=== PATIENT | female | born 1955 | race Caucasian/White ===

== ENCOUNTER → 2022-11-15 | Outpatient (CLI) | payer MEDICARE ==
--- NOTE | 2022-11-16 23:24 | BD ---
EXAMINATION TYPE: Axial Bone Density DATE OF EXAM: 11/15/2022 CLINICAL HISTORY: 67 years old Female. ICD-10 CODE: Z78.0 Height: 59.75 Weight: 159.2 FRAX RISK QUESTIONS: Alcohol (3 or more units per day): no Family History (Parent hip fracture): Mother Glucocorticoids (More than 3mos): no History of Fracture in Adulthood: Foot Secondary Osteoporosis: 1. Type 1 Diabetes: no 2. Hyperthyroidism: no 3. Menopause before 45: yes 4. Malnutrition: no 5. Chronic liver disease: no Rheumatoid Arthritis: no Current Tobacco Use: no RISK FACTORS HISTORY OF: Hip Fracture (Right/Left): no Spine Fracture: no History of Wrist Fracture: no Surgery to Spine/Hip(right/left)/Wrist (right/left): no Family History of Osteoporosis: no Active: somewhat Diet low in dairy products/other sources of calcium: yes Postmenopausal woman: yes Take estrogen and/or progesterone medications: no Lost more than 2 inches in height since high school: no Frequent falls: no Poor Health: no Hyperparathyroidism: no Adrenal Insufficiency: no MEDICATIONS: Prednisone or other steroids: no Thyroid Medications: no Osteoporosis Medications: no Additional Medications: Cholesterol Meds, Calcium, Vit D, CoCu10, Fish Oil, Additional History: EXAM MEASUREMENTS: Bone mineral densitometry was performed using the [employer] System. Bone mineral density as measured about the Lumbar spine is: ----- L1-L4(G/cm2): 1.094 T Score Values are as follows: ----- L1: -1.2 ----- L2: -1.1 ----- L3: -0.4 ----- L4: -0.4 ----- L1-L4: -0.7 Z Score Values are as follows: ----- L1: 0.1 ----- L2: 0.2 ----- L3: 0.9 ----- L4: 1.0 ----- L1-L4: 0.6 Baseline Study Bone mineral density about the R hip (g/cm2): 0.795 Bone mineral density about the L hip (g/cm2): 0.871 T Score values are as follows: -----R Neck: -2.2 -----L Neck: -2.0 -----R Total: -1.7 -----L Total: -1.1 Z Score values are as follows: -----R Neck: -0.9 -----L Neck: -0.7 -----R Total: -0.6 -----L Total: 0.0 Baseline Study FRAX%s: The graph provided illustrates a 32.2% chance for a major osteoporotic fx and a 3.9% chance f or the hips probability for fx in 10 years time. IMPRESSION: Osteopenia (T Score between -2.5 and -1). There is slightly increased risk of fracture and the patient may be considered for treatment. Re-Screen 2-5 years. NOTE: T-SCORE=SD OF THE YOUNG ADULT MEAN.
--- NOTE | 2022-12-07 08:15 | MM ---
Reason for Exam: Screening (asymptomatic). Last mammogram was performed 2 year(s) and 9 month(s) ago. Patient History: Menarche at age 17. First Full-Term at age 23. Postmenopausal. Patient has history of breast feeding. 2019, Bilateral Implants. 1989, Bilateral Implants. Sister had breast cancer, age 55. Risk Values: Samantha 5 year model risk: 2.9%. NCI Lifetime model risk: 10.7%. Prior Study Comparison: 05/14/2018 Bilateral Screening Mammogram, [facility]. 02/18/2020 Bilateral Screening Mammogram, [facility]. Tissue Density: The breast tissue is heterogeneously dense. This may lower the sensitivity of mammography. Findings: Analyzed By CAD. There is no suspicious group of microcalcifications or new suspicious mass. Bilateral breast implants. Overall Assessment: Benign, BI-RAD 2 Management: Screening Mammogram of both breasts in [address] [facility] will attempt to contact patient to return for supplemental views and ultrasound if indicated. Patient should continue monthly self-breast exams. A clinical breast exam by your physician is recommended on an annual basis. This exam should not preclude additional follow-up of suspicious palpable abnormalities. Note on Samantha scores and lifetime risk: 1. A Samantha score greater than 3% is considered moderate risk. If this is the case, consider specialist referral to assess eligibility for a risk reducing agent. 2. If overall lifetime risk for the development of breast cancer is 20% or higher, the patient may qualify for future screening with alternating mammogram and breast MRI. Electronically signed and approved by: Wilfredo Powers DO
== END | disposition home or self-care (01) ==
LOC: RADMAMWWP 16:08
PROVIDERS: ATTEND Internal Medicine
DX: Z12.31 Encounter for screening mammogram for malignant neoplasm of breast (principal); Z13.820 Encounter for screening for osteoporosis; Z78.0 Asymptomatic menopausal state; M85.89 Other specified disorders of bone density and structure, multiple sites
CPT/HCPCS: 77063; 77067; 77080

== ENCOUNTER 2023-04-09 11:11 | Emergency (ER) | payer MEDICARE ==
--- NOTE | 2023-04-09 11:25 | ED ---
Extremity Problem HPI - General Chief complaint: Extremity Problem,Nontraumatic Stated complaint: shoulder and arm pain Time Seen by Provider: 04/09/23 11:24 Source: patient, RN notes reviewed Mode of arrival: ambulatory Limitations: no limitations - History of Present Illness Initial comments: Patient is 68-year-old female presented to the ER with chief complaint of left arm tingling. Patient states going on for about a year and believes it is a pinched nerve. Patient denies any known traumas. Patient states she was recently doing yard work which exacerbated her symptoms. She denies any chest pain, shortness of breath, headache, double/blurry vision, fevers, cough, chills, abdominal pain. - Related Data Previous Rx's Medication Instructions Recorded predniSONE 50 mg PO DAILY 5 Days #5 tab 04/09/23 Allergies Allergy/AdvReac Type Severity Reaction Status Date / Time No Known Allergies Allergy Verified 04/09/23 11:20 Review of Systems ROS Statement: Those systems with pertinent positive or pertinent negative responses have been documented in the HPI. ROS Other: All systems not noted in ROS Statement are negative. Past Medical History Past Medical History: Hyperlipidemia, Hypertension History of Any Multi-Drug Resistant Organisms: None Reported Past Surgical History: Section Past Psychological History: No Psychological Hx Reported Smoking Status: Former smoker Past Alcohol Use History: Rare Past Drug Use History: None Reported General Exam - General Exam Comments Initial Comments: Visual Physical Exam Vital signs reviewed General: Well-appearing, nontoxic, no acute distress. Head: Normocephalic, atraumatic Eyes: PERRLA, EOMI ENT: Airway patent Chest: Nonlabored breathing Skin: No visual rash, normal skin tone Neuro: Alert and oriented 3 Musculoskeletal: No gross abnormalities Limitations: no limitations General appearance: alert, in no apparent distress Head exam: Present: atraumatic, normocephalic, normal inspection Eye exam: Present: normal appearance, PERRL, EOMI. Absent: scleral icterus, conjunctival injection, periorbital swelling ENT exam: Present: normal exam, mucous membranes moist Neck exam: Present: normal inspection. Absent: tenderness, meningismus, lymphadenopathy Respiratory exam: Present: normal lung sounds bilaterally. Absent: respiratory distress, wheezes, rales, rhonchi, stridor Cardiovascular Exam: Present: regular rate, normal rhythm, normal heart sounds. Absent: systolic murmur, diastolic murmur, rubs, gallop, clicks Extremities exam: Present: normal inspection, full ROM, normal capillary refill, other (2+ left radial pulse. bilateral equal strengths. sensation intact. Negative spurlings bilaterally). Absent: tenderness, pedal edema, joint swelling, calf tenderness Neurological exam: Present: alert, oriented X3, CN II-XII intact Psychiatric exam: Present: normal affect, normal mood Skin exam: Present: warm, dry, intact, normal color. Absent: rash Course Vital Signs 04/09/23 11:16 Temperature 98.2 F Pulse Rate 70 Respiratory 18 Rate Blood Pressure 166/88 O2 Sat by Pulse 97 Oximetry Medical Decision Making - Medical Decision Making I performed the quick note portion of the exam. Electronically signed by Buddy Arce PA-C Was pt. sent in by a medical professional or institution ([facility], [employer], urgent care, hospital, or usp...) When possible be specific @ -No Did you speak to anyone other than the patient for history (EMS, parent, family, police, friend...)? What history was obtained from this source @ -No Did you review nursing and triage notes (agree or disagree)? Why? @ -I reviewed and agree with nursing and triage notes Were old charts reviewed (outside hosp., previous admission, EMS record, old EKG, old radiological studies, urgent care reports/EKG's, usp records)? Report findings @ -No old charts were reviewed Differential Diagnosis (chest pain, altered mental status, abdominal pain women, abdominal pain men, vaginal bleeding, weakness, fever, dyspnea, syncope, headache, dizziness, GI bleed, back pain, seizure, CVA, palpatations, mental health, musculoskeletal)? @ -Differential Musculoskeletal: Muscular strain, contusion, ligament sprain, fracture, arthritis, septic arthritis, bursitis, cellulitis, muscle spasm, nerve compression, DVT, arterial occlusion, herpes zoster, electrolyte abnormality, tumor.... This is not meant to be in all inclusive list EKG interpreted by me (3pts min.). @ -None X-rays interpreted by me (1pt min.). @ -Left shoulder x-ray interpreted by me shows no acute process. Cervical spine x-rays interpreted by me shows degenerative disc disease and multilevel foraminal stenosis. No acute fractures or dislocations. CT interpreted by me (1pt min.). @ -None done U/S interpreted by me (1pt. min.). @ -None done What testing was considered but not performed or refused? (CT, X-rays, U/S, labs)? Why? @ -None What meds were considered but not given or refused? Why? @ -None Did you discuss the management of the patient with other professionals (professionals i.e. DrArlyn, PA, [employer], lab, RT, psych nurse, social services analyst, goat driver, teacher, information technology officer, case management manager)? Give summary @ -No Was smoking cessation discussed for >3mins.? @ -No Was critical care preformed (if so, how long)? @ -No Were there social determinants of health that impacted care today? How? (Homelessness, low income, unemployed, alcoholism, drug addiction, transportation, low edu. Level, literacy, decrease access to med. care, senior living, rehab)? @ -No Was there de-escalation of care discussed even if they declined (Discuss DNR or withdrawal of care, Hospice)? DNR status @ -No What co-morbidities impacted this encounter? (DM, HTN, Smoking, COPD, CAD, Cancer, CVA, ARF, Chemo, Hep., AIDS, mental health diagnosis, sleep apnea, morbid obesity)? @ -None Was patient admitted / discharged? Hospital course, mention meds given and route, prescriptions, significant lab abnormalities, going to OR and other pertinent info. @ -Discharge. Patient is a 68-year-old female presented ER with chief complaint of left arm tingling. Vitals stable. Patient has no signs of acute distress. Neurovascularly intact. Equal plaster patternmaker strengths bilaterally. Left shoulder x-ray interpreted by me shows no acute process. Cervical spine x-rays interpreted by me shows degenerative disc disease and multilevel foraminal stenosis. No acute fractures or dislocations. I discussed imaging findings with patient. I advised to follow-up with orthopedics. Referral given. Patient will be prescribed steroids. Return parameters were discussed. Patient be discharged in stable condition with follow-up to orthopedics/PCP. Patient expressed understanding and agreement with care plan. Undiagnosed new problem with uncertain prognosis? @ -No Drug Therapy requiring intensive monitoring for toxicity (Heparin, Nitro, Insulin, Cardizem)? @ -No Were any procedures done? @ -No Diagnosis/symptom? @ -Cervical foraminal stenosis Acute, or Chronic, or Acute on Chronic? @ -Chronic Uncomplicated (without systemic symptoms) or Complicated (systemic symptoms)? @ -Uncomplicated Side effects of treatment? @ -No Exacerbation, Progression, or Severe Exacerbation? @ -No Poses a threat to life or bodily function? How? (Chest pain, USA, CT, pneumonia, PE, COPD, DKA, ARF, appy, cholecystitis, CVA, Diverticulitis, Homicidal, Suicidal, threat to staff... and all critical care pts) @ -No - Radiology Data Radiology results: report reviewed, image reviewed Disposition Clinical Impression: Degenerative disc disease, Foraminal stenosis of cervical region Disposition: HOME SELF-CARE Condition: Stable Instructions (If sedation given, give patient instructions): Degenerative Disc Disease (ED), Chronic Neck Pain (DC) Additional Instructions: Please follow-up with orthopedics. Return to the ER for any new or worsening symptoms. Prescriptions: predniSONE 50 mg PO DAILY 5 Days #5 tab Is patient prescribed a controlled substance at d/c from ED?: No Referrals: Bryon Pittman DO [Primary Care Provider] - 1-2 days Gabriel Alexander DO [Doctor of Osteopathic Medicine] - 1-2 days Time of Disposition: 12:42
[2023-04-09 11:34] VITALS: BP 166/88; PULSE 70; RESP 18; TEMP 98.2
--- NOTE | 2023-04-09 11:51 | XR ---
EXAMINATION TYPE: XR cervical spine comp DATE OF EXAM: 04/09/2023 COMPARISON: None HISTORY: Pain TECHNIQUE: 5 view cervical spine FINDINGS: There is a kyphosis in the upper cervical spine. Anterior vertebral body spurring is presen t C3-C4. There is a grade 1 retrolisthesis of C4 posterior on C5. Posterior spinal lamellar line appe ars intact. There is loss of disc height at C3-4 through C5-6. Some posterior disc space narrowing at C6-7 is present prevertebral space appears normal. Some facet degenerative changes are within the up per cervical spine. Foraminal stenosis on the right is present C3-4 C4-5 C5-6 and to a milder degree C6-7. On the left th ere is moderate foraminal stenosis C3-4 C4-5 and C5-6. IMPRESSION: 1. Bilateral foraminal stenosis. 2. Degenerative disc changes discussed above. 3. Mild grade 1 retrolisthesis of C4 posterior on C5.
--- NOTE | 2023-04-09 11:53 | XR ---
EXAMINATION TYPE: XR shoulder complete LT DATE OF EXAM: 04/09/2023 COMPARISON: NONE HISTORY: Pain TECHNIQUE: Shoulder examined in 3 projections. FINDINGS: The humeral head articulates with the glenoid. The acromio-clavicular junction is normal. No acute fractures or dislocations are evident. A follow up study can be performed 7-10 days from acute trauma for continued pain. MRI can be perfor med if soft tissue evaluation would be of benefit. IMPRESSION: 1. No acute osseous shoulder abnormality left shoulder.
== END 2023-04-09 12:52 | disposition home or self-care (01) ==
LOC: EC 11:11
DX: M48.02 Spinal stenosis, cervical region (principal); I10 Essential (primary) hypertension; Z87.891 Personal history of nicotine dependence
CPT/HCPCS: 72050; 99283

== ENCOUNTER → 2023-05-03 | Outpatient (CLI) | payer MEDICARE ==
--- NOTE | 2023-05-03 21:50 | MR ---
EXAMINATION TYPE: MR cervical spine wo con DATE OF EXAM: 05/03/2023 9:00 PM CLINICAL INDICATION:Female, 68 years old with history of M542, Neck pain into Left shoulder/arm/finge rs, Numbness/tingling since Apr 06, 2023 COMPARISON: 04/21/2023. TECHNIQUE: Multi planar, multi sequence imaging was performed utilizing: T1-weighted, T2-weighted, an d turbo inversion recovery imaging of the cervical spine. IV Contrast: cc (none if empty) FINDINGS: Alignment: The cervical vertebral bodies have preserved heights. Subtle grade 1 anterolisthesis of C6 and C7. Bones: Minimal osteophytes and disc space narrowing most pronounced at the C3-C6 vertebral levels. Cord: The spinal cord is unremarkable with regards to their signal intensity and morphology. Discs: Multilevel disc desiccation is present. C2-C3: No significant disc pathology. The spinal canal is patent. Bilateral facet and uncovertebral joint arthropathy are present with mild bilateral neural foraminal stenosis. C3-C4: No significant disc pathology. The spinal canal is patent. Bilateral facet and uncovertebral joint arthropathy are present with severe moderate to severe bilateral neural foraminal stenosis. C4-C5: A disc osteophyte complex is present with mild to moderate spinal canal stenosis. Bilateral f acet and uncovertebral joint arthropathy are present with severe left and moderate to severe right ne ural foraminal stenosis. C5-C6: A disc osteophyte complex is present with moderate spinal canal stenosis. Bilateral facet and uncovertebral joint arthropathy are present with moderate to severe left and moderate to severe righ t neural foraminal stenosis. C6-C7: No significant disc pathology. The spinal canal is patent. Bilateral facet and uncovertebral joint arthropathy are present with moderate to severe bilateral neural foraminal stenosis. C7-T1: No significant disc pathology. The spinal canal is patent. No neural foraminal stenosis. T2-T3 and T3-T4 disc bulging without significant spinal canal stenosis. There is moderate bilateral T 2-T3 neural foraminal stenosis. T4-T5 left central protrusion partially visualized on sagittal only imaging. Other: None. IMPRESSION: 1. No evidence for disc herniation or significant spinal canal stenosis. 2. Moderate disc degeneration with associated osteoarthritic changes worse at C3-C6 resulting in bladimir re left C5-C6, moderate to severe right C5-C6, and moderate to severe bilateral C6-C7 neural foramina l stenosis. 3. T4-T5 left central disc protrusion which impresses upon the spinal cord. This is only seen on sagi ttal imaging. 4. Disc bulging in the upper thoracic spine also present with moderate bilateral T2-T3 neural foramin al stenosis.
== END | disposition home or self-care (01) ==
LOC: RADMRIMAIN 23:01
PROVIDERS: ATTEND Orthopaedic Surgery
DX: M50.322 Other cervical disc degeneration at C5-C6 level (principal); M47.812 Spondylosis without myelopathy or radiculopathy, cervical region; M99.71 Connective tissue and disc stenosis of intervertebral foramina of cervical region; M51.24 Other intervertebral disc displacement, thoracic region; M48.02 Spinal stenosis, cervical region
CPT/HCPCS: 72141

== ENCOUNTER → 2023-05-24 | Outpatient (CLI) | payer MEDICARE ==
[2023-05-24 13:46] VITALS: BP 147/77; PULSE 77; RESP 16; TEMP 97.1
--- NOTE | 2023-05-24 14:31 | P.PAINPG ---
PQRS Measure Charge Sheet Comment: HISTORY OF PRESENT ILLNESS: A 68 yr old female as a referral from Dr Pittman presents today w severe and chronic neck pain x 1 yr secondary to DDD, spondylosis and facet arthropathy without myelopathy for evaluation. Pt states pain level is provoked at 10 /10 in intensity, constant, localized in the lower cervical spine, predominantly axial, stabbing in character w occasional shooting pain towards the LUE. Pain is provoked by over activity. Pain is alleviated by PT integrated w massage x 4 wks which she is currently in, heat, medications (Lyrica), Voltaren topical, repositioning and rest. Oswestry axial pain score at . PMH: OA, Hyperlipidemia, HTN PSH: Section SH: Former tobacco user, Rare ETOH use, No illicit drug use FH: Noncontributory All: See list Meds: See list REVIEW OF ORGAN SYSTEMS: CONSTITUTIONAL: No fevers or chills. No recent weight loss. NEUROLOGICAL: + numbness and tingling along the distal extremities. No seizure disorders or headaches. MUSCULOSKELETAL: + pain PSYCHIATRIC: Denies current depression or suicidal thoughts. Physical Examinations : Constitutional : Cooperative , not in acute distress . Neurologic : Cranial nerve II to XII intact. No focal neurological deficits. Psychiatric : alert & oriented x 3. Matching mood & appropriate affect. Judgment & insight intact. Musculoskeletal : Cervical Spine Motor strength in the deltoid and biceps: Normal right side. Normal Left side Motor strength biceps and the wrist extensors: Normal right side . Normal left side Motor strength in the triceps muscle: Normal right side. Normal left side Deep tendon reflexes: Normal at the biceps. Normal at Brachioradialis. Normal at triceps Vertebral body tenderness to deep palpation over C6 Cervical facet loading test: positive bilaterally Spurling test: positive bilaterally over C6-7 Neck distraction test: positive bilaterally Sindy sign: positive bilaterally Lumbar spine Motor strength lower extremities ,thigh and legs 5/5 Right side , 5/5 Left side Deep tendon reflexes : Normal Knee Jerk. Normal Ankle Jerk Vertebral body tenderness over Jones Test positive Lumbar facet Loading Test: positive Right / positive Left Range of motion of the lumbar spine Flexion 30 degrees, extension 10 degrees Straight Leg Raise test: Left/ Right positive at degree Laura test: positive right / positive left. Severe tenderness over the Sacroiliac joint on the Right / Left sides Gaenslen test: positive bilaterally Seated flexion test: positive bilaterally. Sacral spine : Severe tenderness over the Sacroiliac joint: right side / left side Range of motion: Flexion of the lumbar spine <60 degrees Range of motion: Extension of the lumbar spine <20 degrees Gaenslen's Test positive Laura test: positive right side / left side Thigh Thrust Test Sacral Thrust Test Imaging: MRI noncontrast of the cervical spine from 05/03/2023 reviewed Assessment/ Plan : Cervical DDD Recommendation of PAMELA C6-C7 #1. May need a series of injections for optimal pain relief. Risks, benefits of procedure discussed and patient verbalized understanding. Admits to anti- coagulant use or medical history of diabetes. Protocol for discontinuation/ continuation of medications juaquin procedure discussed. All questions answered. I have spent greater than 30 minutes on patient care today. Dr Juarez was available by phone for the evaluation of this patient. The time was used to review the medical records including relevant urine studies and Prescription history (MAPs), review of the available imaging, evaluation and examination of the patient, coordination of care with the medical staff and if applicable referring physicians, as well as creation of the medical record Home Medications: Ambulatory Orders predniSONE 50 mg PO DAILY 5 Days #5 tab 04/09/23 Atorvastatin [Lipitor] 40 mg PO DAILY 05/24/23 Cyclobenzaprine [Flexeril] 10 mg PO TID 05/24/23 Diclofenac Sodium 50 mg PO 05/24/23 Ketorolac [Toradol] 10 mg PO Q6HR 05/24/23 amLODIPine [Norvasc] 2.5 mg PO DAILY 05/24/23 Controlled Substance Measures - Controlled Substance Measures Is patient prescribed a controlled substance at discharge?: No
== END ==
LOC: PNWHC3 13:06
PROVIDERS: ATTEND Specialist
DX: M50.323 Other cervical disc degeneration at C6-C7 level (principal); M19.90 Unspecified osteoarthritis, unspecified site; E78.5 Hyperlipidemia, unspecified; I10 Essential (primary) hypertension; Z87.891 Personal history of nicotine dependence
CPT/HCPCS: 99211

== ENCOUNTER 2023-06-13 12:53 | Day surgery (SDC) | payer MEDICARE ==
[2023-06-13] MEDS: LACTATED RINGERS 1,000 ML IV ONE (13:23)
[2023-06-13 13:42] VITALS: TEMP 97.1
[2023-06-13] MEDS ORDERED: IOPAMIDOL M200 10 ML VIAL ONE (13:55)
[2023-06-13] MEDS ORDERED: DEXAMETHASONE SOD PHOSPHATE 10 MG/ML 1 ML VIAL ONE (13:55)
[2023-06-13] MEDS: IV FLUID CONTINUATION 1,000 ML IV ONE (14:13)
--- NOTE | 2023-06-13 14:14 | P.PCN ---
Date of Procedure: 06/13/23 Procedure(s) Performed: . PROCEDURE 1. Cervical epidural steroid injection under fluoroscopic guidance, C7-T1 2. Cervical epidurogram. PREOPERATIVE DIAGNOSIS: 1- Cervical Degenerative Disc Diseases 2- Cervical radiculopathy., 3-cervical spondylosis with cervical Facet arthropathy without myelopathy POSTOPERATIVE DIAGNOSIS: : 1- Cervical Degenerative Disc Diseases , 2- Cervical radiculopathy. 3-,cervical spondylosis with cervical Facet arthropathy without myelopathy ANESTHESIA: Local anesthesia with 1% lidocaine EBL 0 Fluoroscopy image save and stored PROCEDURE INDICATION: The patient with neck pain and radiculitis unresponsive to conservative treatment consents for procedure. Patient MRI cooperates with her clinical symptoms. She has severe complaints of left-handed weakness and pain. She is improved slightly with Lyrica and physical therapy however she's noticed significant deficits in her left arm and hand reviewed she was referred by her neurosurgeon for epidural steroid injection PROCEDURE DESCRIPTION / TECHNIQUE: The patient was seen and identified in the pr eoperative area. Risks, benefits, complications, including but not limited to infections ,bleeding , allergic reactions to the medications ,and not complete pain releife, and alternatives were discussed with the patient, the patient agreed to proceed with the procedure and signed the consent. Patient was taken to the OR and time out was completed. The patient was placed in the prone position on the procedure table. A pillow was placed under the patients chest to increase the cervical interlaminar space. The cervical area was prepped and draped in the usual sterile fashion. Vital signs were closely monitored during the procedure. Using anterior-posterior fluoroscopy, the C7-T1 interlaminar space was identified and the skin over this site was marked and then infiltrated with 1% lidocaine subcutaneously. Subsequently, a 20-gauge 3-1/2-inch Tuohy epidural needle was inserted and advanced toward the epidural space by means of the "[id number]" with saline technique and guided by AP and lateral fluoroscopy. The correct needle position in the epidural space was verified with the injection of 2 mL of the water soluble contrast dye [id number] and observing an excellent epidurogram with the epidural spread of the dye, after negative aspiration for blood and CSF and in the absence of paresthesias. Again after negative aspiration, mixture containing 10 mg Dexamethasone and 2 ml of preservative-free normal saline injected and a washout of epidurogram was seen. Needle was withdrawn intact, skin was cleansed, and bandages were applied. Complications= none. Disposition= patient was placed in supine position and transferred to the recovery room area in stable condition and there was no evidence of upper or lower extremity motor or sensory deficit after the procedure patient was discharged from recovery room after discharge criteria met and home discharge instructions was given by the staff and patient will follow with the pain clinic in 2-4 weeks
[2023-06-13] MEDS ORDERED: LACTATED RINGERS 1,000 ML IV SCH (14:15)
--- NOTE | 2023-06-13 14:28 | FL ---
EXAMINATION TYPE: FL guided pain mgmt statistic DATE OF EXAM: 06/13/2023 HISTORY: Fluoroscopy time Total dose area product (DAP) in uGy*m?, mGy*cm? (or similar): 0.58650 IMPRESSION: 1. Fluoroscopy time.
[2023-06-13 14:52] VITALS: BP 146/78; PULSE 67; RESP 18
== END 2023-06-13 14:48 | disposition home or self-care (01) ==
LOC: ORPAIN 12:53
PROVIDERS: ATTEND Anesthesiology
DX: M50.123 Cervical disc disorder at C6-C7 level with radiculopathy (principal); M47.22 Other spondylosis with radiculopathy, cervical region; Z79.1 Long term (current) use of non-steroidal anti-inflammatories (NSAID); Z91.030 Bee allergy status
CPT/HCPCS: 62321; J1100; Q9966

== ENCOUNTER → 2023-06-28 | Outpatient (CLI) | payer MEDICARE ==
[2023-06-28 13:53] VITALS: BP 128/66; PULSE 62; RESP 15; TEMP 98.4
--- NOTE | 2023-06-28 14:28 | P.PAINPG ---
Objective - Vital Signs Vital signs: Intake & Output 06/27/23 06/28/23 06/28/23 18:59 06:59 18:59 Weight 72.575 kg PQRS Measure Charge Sheet Comment: HISTORY OF PRESENT ILLNESS: A 68 yr old female presents today w severe and chronic neck pain x 1 yr secondary to DDD, spondylosis and facet arthropathy without myelopathy for evaluation s/p PAMELA C6-C7 #1. Pt states she experienced 90% pain relief x 2 wks s/p procedure. Pt states pain level is provoked at 1 /10 in intensity, constant, localized in the lower cervical spine, predominantly axial, stabbing in character w occasional shooting pain towards the LUE. Pain is provoked by over activity. Pain is alleviated by injections, PT integrated w massage x 6 wks which ended in Apr 2023, physician guided home exercise regimen daily since Apr 2023, heat, medications, topical, repositioning and rest. Cervical disability score at 15. Interventional proceudres include PAMELA C6-C7 x1 Medications include Lyrica, Voltaren gel REVIEW OF ORGAN SYSTEMS: CONSTITUTIONAL: No fevers or chills. No recent weight loss. NEUROLOGICAL: + numbness and tingling along the distal extremities. No seizure disorders or headaches. MUSCULOSKELETAL: + pain PSYCHIATRIC: Denies current depression or suicidal thoughts. Physical Examinations : Constitutional : Cooperative , not in acute distress . Neurologic : Cranial nerve II to XII intact. No focal neurological deficits. Psychiatric : alert & oriented x 3. Matching mood & appropriate affect. Judgment & insight intact. Musculoskeletal : Cervical Spine Motor strength in the deltoid and biceps: Normal right side. Normal Left side Motor strength biceps and the wrist extensors: Normal right side . Normal left side Motor strength in the triceps muscle: Normal right side. Normal left side Deep tendon reflexes: Normal at the biceps. Normal at Brachioradialis. Normal at triceps Vertebral body tenderness to deep palpation Cervical facet loading test: positive bilaterally Spurling test: positive bilaterally over C6-7 Neck distraction test: positive bilaterally Sindy sign: positive bilaterally Lumbar spine Motor strength lower extremities ,thigh and legs 5/5 Right side , 5/5 Left side Deep tendon reflexes : Normal Knee Jerk. Normal Ankle Jerk Vertebral body tenderness over Jones Test positive Lumbar facet Loading Test: positive Right / positive Left Range of motion of the lumbar spine Flexion 30 degrees, extension 10 degrees Straight Leg Raise test: Left/ Right positive at degree Laura test: positive right / positive left. Severe tenderness over the Sacroiliac joint on the Right / Left sides Gaenslen test: positive bilaterally Seated flexion test: positive bilaterally. Sacral spine : Severe tenderness over the Sacroiliac joint: right side / left side Range of motion: Flexion of the lumbar spine <60 degrees Range of motion: Extension of the lumbar spine <20 degrees Gaenslen's Test positive Laura test: positive right side / left side Thigh Thrust Test Sacral Thrust Test Imaging: MRI noncontrast of the cervical spine from 05/03/2023 reviewed Assessment/ Plan : Cervical DDD Recommendation of TENS unit M50.30. Will try cervical traction at home w use of cervical traction device. Continues to follow physician guided home exercise plan. May RTC on an as needed basis. All questions answered. I have spent greater than 30 minutes on patient care today. Dr Juarez was available by phone for the evaluation of this patient. The time was used to review the medical records including relevant urine studies and Prescription history (MAPs), review of the available imaging, evaluation and examination of the patient, coordination of care with the medical staff and if applicable referring physicians, as well as creation of the medical record PQRS Narrative: Hx Alcohol Use (MH) No Home Medications: Ambulatory Orders Atorvastatin [Lipitor] 40 mg PO HS 05/24/23 amLODIPine [Norvasc] 2.5 mg PO HS 05/24/23 Cyanocobalamin (Vitamin B-12) [Vitamin B-12] 1,000 mcg PO DAILY 06/08/23 Diclofenac Sodium 50 mg PO TID 06/08/23 Magnesium 250 mg PO DAILY 06/08/23 Multivitamins, Thera [Multivitamin (formulary)] 1 tab PO DAILY 06/08/23 Pregabalin 200 mg PO BID 06/08/23 S-Adenosylmethionine Sul Tosyl [Abner-E] 400 mg PO QAM 06/08/23 Turmeric Root Extract [Turmeric] 500 mg PO DAILY 06/08/23 Ubidecarenone [Co Q-10] 100 mg PO DAILY 06/08/23 Controlled Substance Measures - Controlled Substance Measures Is patient prescribed a controlled substance at discharge?: No
== END ==
LOC: PNWHC3 13:06
PROVIDERS: ATTEND Specialist
DX: M50.323 Other cervical disc degeneration at C6-C7 level (principal); M47.812 Spondylosis without myelopathy or radiculopathy, cervical region; G89.29 Other chronic pain; Z91.030 Bee allergy status
CPT/HCPCS: 99211

== ENCOUNTER → 2023-08-30 | Outpatient (CLI) | payer MEDICARE ==
[2023-08-30 14:22] VITALS: BP 124/72; PULSE 68; RESP 16
--- NOTE | 2023-08-30 15:21 | P.PAINPG ---
PQRS Measure Charge Sheet Comment: HISTORY OF PRESENT ILLNESS: A 68 yr old female presents today w severe and chronic neck pain x 1 yr secondary to DDD, spondylosis and facet arthropathy without myelopathy for evaluation. Pt states pain level is provoked at 7 /10 in intensity, constant, localized in the lower cervical spine, predominantly axial, stabbing in character w occasional shooting pain L & R of midline. Pain is provoked by over activity. Pain is alleviated by injections, PT integrated w massage x 6 wks which ended in May 2023, physician guided home exercise regimen daily since Apr 2023, use of a TENS unit at home, cervical traction at home, heat, medications, topical, repositioning and rest. Cervical disability score at 17. Pt has C3-C5 scheduled 01/29/24. Interventional proceudres include PAMELA C6-C7 x1 Medications include Lyrica, Voltaren gel REVIEW OF ORGAN SYSTEMS: CONSTITUTIONAL: No fevers or chills. No recent weight loss. NEUROLOGICAL: + numbness and tingling along the distal extremities. No seizure disorders or headaches. MUSCULOSKELETAL: + pain PSYCHIATRIC: Denies current depression or suicidal thoughts. Physical Examinations : Constitutional : Cooperative , not in acute distress . Neurologic : Cranial nerve II to XII intact. No focal neurological deficits. Psychiatric : alert & oriented x 3. Matching mood & appropriate affect. Judgment & insight intact. Musculoskeletal : Cervical Spine Motor strength in the deltoid and biceps: Normal right side. Normal Left side Motor strength biceps and the wrist extensors: Normal right side . Normal left side Motor strength in the triceps muscle: Normal right side. Normal left side Deep tendon reflexes: Normal at the biceps. Normal at Brachioradialis. Normal at triceps Vertebral body tenderness to deep palpation Cervical facet loading test: positive bilaterally C4-C5, C5-C6 Spurling test: positive bilaterally Neck distraction test: positive bilaterally Sindy sign: positive bilaterally Lumbar spine Motor strength lower extremities ,thigh and legs 5/5 Right side , 5/5 Left side Deep tendon reflexes : Normal Knee Jerk. Normal Ankle Jerk Vertebral body tenderness over Jones Test positive Lumbar facet Loading Test: positive Right / positive Left Range of motion of the lumbar spine Flexion 30 degrees, extension 10 degrees Straight Leg Raise test: Left/ Right positive at degree Laura test: positive right / positive left. Severe tenderness over the Sacroiliac joint on the Right / Left sides Gaenslen test: positive bilaterally Seated flexion test: positive bilaterally. Sacral spine : Severe tenderness over the Sacroiliac joint: right side / left side Range of motion: Flexion of the lumbar spine <60 degrees Range of motion: Extension of the lumbar spine <20 degrees Gaenslen's Test positive Laura test: positive right side / left side Thigh Thrust Test Sacral Thrust Test Imaging: MRI noncontrast of the cervical spine from 05/03/2023 reviewed Assessment/ Plan : Cervical DDD Recommendation of BL MBB C4-C5, C5-C6 #1. May need a series of injections, up until RFA, for optimal pain relief. Risks, benefits of procedure discussed and patient verbalized understanding. Protocol for discontinuation/continuation of medication surrounding procedure discussed. All questions answered. I have spent greater than 30 minutes on patient care today. Dr Juarez was available by phone for the evaluation of this patient. The time was used to review the medical records including relevant urine studies and Prescription history (MAPs), review of the available imaging, evaluation and examination of the patient, coordination of care with the medical staff and if applicable referring physicians, as well as creation of the medical record - Pain Location Bilateral Lower Neck Non-Pharmacological Interventions: Elevation, Heat, Ice, Inactivity, Physical Therapy, Sitting Pharmacological Interventions: Epidural, PRN Medication, Scheduled Medication, Topical Medication PQRS Narrative: Hx Alcohol Use (MH) No Home Medications: Ambulatory Orders Atorvastatin [Lipitor] 40 mg PO HS 05/24/23 amLODIPine [Norvasc] 2.5 mg PO HS 05/24/23 Cyanocobalamin (Vitamin B-12) [Vitamin B-12] 1,000 mcg PO DAILY 06/08/23 Diclofenac Sodium 50 mg PO TID 06/08/23 Magnesium 250 mg PO DAILY 06/08/23 Multivitamins, Thera [Multivitamin (formulary)] 1 tab PO DAILY 06/08/23 Pregabalin 200 mg PO BID 06/08/23 S-Adenosylmethionine Sul Tosyl [Abner-E] 400 mg PO QAM 06/08/23 Turmeric Root Extract [Turmeric] 500 mg PO DAILY 06/08/23 Ubidecarenone [Co Q-10] 100 mg PO DAILY 06/08/23 Controlled Substance Measures - Controlled Substance Measures Is patient prescribed a controlled substance at discharge?: No
== END ==
LOC: PNWHC3 13:46
PROVIDERS: ATTEND Specialist
DX: M50.321 Other cervical disc degeneration at C4-C5 level (principal); M50.322 Other cervical disc degeneration at C5-C6 level; Z91.030 Bee allergy status
CPT/HCPCS: 99211

== ENCOUNTER 2023-09-15 06:58 | Day surgery (SDC) | payer MEDICARE ==
[2023-09-13 16:03] VITALS: BMI 34.5
[2023-09-15] MEDS: IV FLUID CONTINUATION 1,000 ML IV ONE ×2 (06:40→08:29)
[2023-09-15] MEDS: LACTATED RINGERS 1,000 ML BAG IV STA (06:43)
[2023-09-15 07:14] VITALS: TEMP 97.3
[2023-09-15] MEDS ORDERED: ROPIVACAINE 5MG/ML 20ML VIAL ONE (08:02)
[2023-09-15] MEDS ORDERED: fentaNYL (PF) 50 MCG/ML 2 ML AMP ONE (08:02)
[2023-09-15] MEDS ORDERED: MIDAZOLAM 2 MG/2 ML VIAL ONE (08:02)
--- NOTE | 2023-09-15 08:25 | P.PCN ---
Date of Procedure: 09/15/23 Procedure(s) Performed: PREOPERATIVE DIAGNOSIS: 1-Cervical Spondylosis with Facet Arthropathy.without myelopathy. 2-cervical degenerative disc disease POSTOPERATIVE DIAGNOSIS:1-cervical spondylosis with facet arthropathy without myelopathy. 2-cervical degenerative disc disease PROCEDURES: Diagnostic bilateral C4 , C5 , and C6 medial branch blocks, with fluoroscopic guidance (fluoroscopy images available in radiology department ) ( to target the facet joint at bilateral C4- 5 ,C5- 6 )#1 St ANESTHESIA: moderate sedation with Versed 2 mg , and fentanyl 50 micrograms ( sedation started at 08:02 ended 08:22 ) EBL: Minimal PROCEDURE INDICATION: The patient with neck pain secondary to cervical arthropathy unresponsive to more conservative treatments. PROCEDURE DESCRIPTION / TECHNIQUE: The patient was seen and identified in the preoperative area. Risks, benefits, complications, and alternatives were discussed with the patient, the patient agreed to proceed with the procedure and signed the consent. IV was started. Vital signs remained stable throughout the procedure. Patient was taken to the OR and time out was completed. The patient was placed in the lateral position on the procedure table. The cervical area was prepped and draped in the usual sterile fashion. Critical pause was taken. Vital signs were closely monitored during the procedure. Conscious sedation was used during the procedure to decrease patients anxiety. Using cross-table lateral fluoroscopy, the centroid of the trapezoid of right C4 , C5 and C6, was identified, marked, and localized with 1% lidocaine 1 ml at each level for skin and Sub Q infiltrations . Subsequently, a 22 G 4 spinal needle was advanced guided by fluoroscopy to the centroid of the trapezoid of Right C4 , C5, C6 . [place] tip position was confirmed at the centroid of the trapezoids of Right C4 , C5 ,C6 with anteroposterior fluoroscopy. Subsequently, 2 ml of preservative-free Ropivacaine 0.5% mixed and half ml of the was injected after negative aspiration for blood and CSF. [place] was then r emoved intact the same procedure was repeated at the left C4 , C5 , and C6 levels. COMPLICATIONS: No acute complications. COMMENTS:(We tried to do the procedure and in prone position I was not able to visualize C6 vertebral, this reason the procedure done in lateral position) DISPOSITION / PLANS: The patient was placed in a supine position and transferred to the recovery area in a stable condition for observation and was discharged from the recovery room after meeting discharge criteria. Home discharge instructions given to the patient by the staff. The patient was reexamined prior to discharge. The patient will schedule a follow up in the clinic in 2-4 weeks.
[2023-09-15] MEDS ORDERED: LACTATED RINGERS 1,000 ML IV SCH (08:37)
[2023-09-15 09:01] VITALS: BP 127/81; PULSE 61; RESP 17
--- NOTE | 2023-09-15 11:39 | FL ---
EXAMINATION TYPE: FL guided pain mgmt statistic Intraoperative/procedural fluoroscopic services were provided. Total fluoroscopy time is 14.7 seconds with a total of 4 submitted images to PACS. Please s ee the operative/procedural note for further details. DAP: 0.11227 mGym2 Gycm2 uGym2 cGycm2
== END 2023-09-15 09:04 | disposition home or self-care (01) ==
LOC: ORPAIN 06:58
PROVIDERS: ATTEND Specialist
DX: M47.812 Spondylosis without myelopathy or radiculopathy, cervical region (principal); M50.322 Other cervical disc degeneration at C5-C6 level
CPT/HCPCS: 64490; 64491 ×2; 99152; J2250; J3010; J2795

== ENCOUNTER → 2023-10-05 | Outpatient (CLI) | payer MEDICARE ==
[2023-10-05 15:17] VITALS: BP 170/73; PULSE 56; RESP 16
--- NOTE | 2023-10-05 15:35 | P.PAINPG ---
Objective - Vital Signs Vital signs: Vital Signs Temp Pulse 56 L 10/05/23 15:14 Resp 16 10/05/23 15:14 BP 170/73 10/05/23 15:14 Pulse Ox 98 10/05/23 15:14 FiO2 PQRS Measure Charge Sheet Mode of Arrival: Ambulatory Comment: HISTORY OF PRESENT ILLNESS: A 68 yr old female presents today w severe and chronic neck pain x 1 yr secondary to DDD, spondylosis and facet arthropathy without myelopathy for evaluation s/p BL MBB C4-C5/ C5-C6 #1. Pt states she experienced 95% pain relief x 6 hrs s/p procedure. Pt states pain level is provoked at 7 /10 in intensity, constant, localized in the lower cervical spine, predominantly axial, stabbing in character w occasional shooting pain L & R of midline. Pain is provoked by over activity. Pain is alleviated by injections, PT integrated w massage x 6 wks which ended in May 2023, physician guided home exercise regimen daily since Apr 2023, use of a TENS unit at home, cervical traction at home, heat, medications, topical, repositioning and rest. Cervical disability score at 17. Pt has C3-C5 scheduled 01/29/24. Interventional proceudres include PAMELA C6-C7 x1, BL MBB C4-C5/ C5-C6 x1 Medications include Lyrica, Voltaren gel REVIEW OF ORGAN SYSTEMS: CONSTITUTIONAL: No fevers or chills. No recent weight loss. NEUROLOGICAL: + numbness and tingling along the distal extremities. No seizure disorders or headaches. MUSCULOSKELETAL: + pain PSYCHIATRIC: Denies current depression or suicidal thoughts. Physical Examinations : Constitutional : Cooperative , not in acute distress . Neurologic : Cranial nerve II to XII intact. No focal neurological deficits. Psychiatric : alert & oriented x 3. Matching mood & appropriate affect. Judgment & insight intact. Musculoskeletal : Cervical Spine Motor strength in the deltoid and biceps: Normal right side. Normal Left side Motor strength biceps and the wrist extensors: Normal right side . Normal left side Motor strength in the triceps muscle: Normal right side. Normal left side Deep tendon reflexes: Normal at the biceps. Normal at Brachioradialis. Normal at triceps Vertebral body tenderness to deep palpation Cervical facet loading test: positive bilaterally C4-C5, C5-C6 Spurling test: positive bilaterally Neck distraction test: positive bilaterally Sindy sign: positive bilaterally Lumbar spine Motor strength lower extremities ,thigh and legs 5/5 Right side , 5/5 Left side Deep tendon reflexes : Normal Knee Jerk. Normal Ankle Jerk Vertebral body tenderness over Jones Test positive Lumbar facet Loading Test: positive Right / positive Left Range of motion of the lumbar spine Flexion 30 degrees, extension 10 degrees Straight Leg Raise test: Left/ Right positive at degree Laura test: positive right / positive left. Severe tenderness over the Sacroiliac joint on the Right / Left sides Gaenslen test: positive bilaterally Seated flexion test: positive bilaterally. Sacral spine : Severe tenderness over the Sacroiliac joint: right side / left side Range of motion: Flexion of the lumbar spine <60 degrees Range of motion: Extension of the lumbar spine <20 degrees Gaenslen's Test positive Laura test: positive right side / left side Thigh Thrust Test Sacral Thrust Test Imaging: MRI noncontrast of the cervical spine from 05/03/2023 reviewed Assessment/ Plan : Cervical DDD Recommendation of BL MBB C4-C5, C5-C6 #2. May need a series of injections, up until RFA, for optimal pain relief. Risks, benefits of procedure discussed and patient verbalized understanding. Protocol for discontinuation/continuation of medication surrounding procedure discussed. All questions answered. I have spent greater than 30 minutes on patient care today. Dr Juarez was available by phone for the evaluation of this patient. The time was used to review the medical records including relevant urine studies and Prescription history (MAPs), review of the available imaging, evaluation and examination of the patient, coordination of care with the medical staff and if applicable referring physicians, as well as creation of the medical record - Pain Location Lower Neck Pharmacological Interventions: Medication PQRS Narrative: Blood Pressure 170/73 Pain Intensity [Lower Neck] 6 Scale Used Numeric (1 - 10) Hx Alcohol Use (MH) No Home Medications: Ambulatory Orders Atorvastatin [Lipitor] 40 mg PO HS 05/24/23 amLODIPine [Norvasc] 2.5 mg PO HS 05/24/23 Cyanocobalamin (Vitamin B-12) [Vitamin B-12] 1,000 mcg PO DAILY 06/08/23 Diclofenac Sodium 50 mg PO TID 06/08/23 Magnesium 250 mg PO DAILY 06/08/23 Multivitamins, Thera [Multivitamin (formulary)] 1 tab PO DAILY 06/08/23 Pregabalin 150 mg PO BID 06/08/23 S-Adenosylmethionine Sul Tosyl [Abner-E] 400 mg PO QAM 06/08/23 Turmeric Root Extract [Turmeric] 500 mg PO DAILY 06/08/23 Ubidecarenone [Co Q-10] 100 mg PO DAILY 06/08/23 Controlled Substance Measures - Controlled Substance Measures Is patient prescribed a controlled substance at discharge?: No
== END ==
LOC: PNWHC3 15:05
PROVIDERS: ATTEND Specialist
DX: M50.321 Other cervical disc degeneration at C4-C5 level (principal); M50.322 Other cervical disc degeneration at C5-C6 level; M47.812 Spondylosis without myelopathy or radiculopathy, cervical region; Z91.030 Bee allergy status
CPT/HCPCS: 99211

== ENCOUNTER 2023-10-27 06:42 | Day surgery (SDC) | payer MEDICARE ==
[2023-10-27] MEDS: IV FLUID CONTINUATION 1,000 ML IV ONE ×2 (07:16→08:02)
[2023-10-27] MEDS: LACTATED RINGERS 1,000 ML IV SCH (07:22)
[2023-10-27 07:27] VITALS: TEMP 97.8
[2023-10-27] MEDS ORDERED: MIDAZOLAM 2 MG/2 ML VIAL ONE (07:33)
[2023-10-27] MEDS ORDERED: fentaNYL (PF) 50 MCG/ML 2 ML AMP ONE (07:33)
[2023-10-27] MEDS ORDERED: ROPIVACAINE 5MG/ML 20ML VIAL ONE (07:33)
--- NOTE | 2023-10-27 07:57 | P.PCN ---
Date of Procedure: 10/27/23 Procedure(s) Performed: PREOPERATIVE DIAGNOSIS: 1-Cervical Spondylosis with Facet Arthropathy.without myelopathy. 2-cervical degenerative disc disease POSTOPERATIVE DIAGNOSIS:1-cervical spondylosis with facet arthropathy without myelopathy. 2-cervical degenerative disc disease PROCEDURES: Diagnostic bilateral C4 , C5 , and C6 medial branch blocks, with fluoroscopic guidance (fluoroscopy images available in radiology department ) ( to target the facet joint at bilateral C4- 5 ,C5- 6 )#2nd ANESTHESIA: moderate sedation with Versed 2 mg , and fentanyl 100 micrograms ( sedation started at 07:37 ended 07:54 ) EBL: Minimal PROCEDURE INDICATION: The patient with neck pain secondary to cervical arthropathy unresponsive to more conservative treatments. PROCEDURE DESCRIPTION / TECHNIQUE: The patient was seen and identified in the preoperative area. Risks, benefits, complications, and alternatives were discussed with the patient, the patient agreed to proceed with the procedure and signed the consent. IV was started. Vital signs remained stable throughout the procedure. Patient was taken to the OR and time out was completed. The patient was placed in the lateral position on the procedure table. The cervical area was prepped and draped in the usual sterile fashion. Critical pause was taken. Vital signs were closely monitored during the procedure. Conscious sedation was used during the procedure to decrease patients anxiety. Using cross-table lateral fluoroscopy, the centroid of the trapezoid of right C4 , C5 and C6, was identified, marked, and localized with 1% lidocaine 1 ml at each level for skin and Sub Q infiltrations . Subsequently, a 22 G 3 spinal needle was advanced guided by fluoroscopy to the centroid of the trapezoid of Right C4 , C5, C6 . [place] tip position was confirmed at the centroid of the trapezoids of Right C4 , C5 ,C6 with anteroposterior fluoroscopy. Subsequently, 2 ml of preservative-free Ropivacaine 0.5% mixed and half ml of the was injected after negative aspiration for blood and CSF. [place] was then r emoved intact the same procedure was repeated at the left C4 , C5 , and C6 levels. COMPLICATIONS: No acute complications. COMMENTS:(We tried to do the procedure and in prone position I was not able to visualize C6 vertebral, this reason the procedure done in lateral position) DISPOSITION / PLANS: The patient was placed in a supine position and transferred to the recovery area in a stable condition for observation and was discharged from the recovery room after meeting discharge criteria. Home discharge instructions given to the patient by the staff. The patient was reexamined prior to discharge. The patient will schedule a follow up in the clinic in 2-4 weeks
[2023-10-27 08:05] VITALS: RESP 16
[2023-10-27 08:25] VITALS: BP 138/73; PULSE 59
--- NOTE | 2023-10-27 08:36 | FL ---
EXAMINATION TYPE: FL guided pain mgmt statistic Intraoperative/procedural fluoroscopic services were provided. Total fluoroscopy time is 9.5 seconds with a total of 4 submitted images to PACS. Please se e the operative/procedural note for further details. DAP: 0.04723 mGym2
== END 2023-10-27 08:39 ==
LOC: ORPAIN 06:42
PROVIDERS: ATTEND Specialist
DX: M47.812 Spondylosis without myelopathy or radiculopathy, cervical region (principal); M50.322 Other cervical disc degeneration at C5-C6 level; Z91.030 Bee allergy status
CPT/HCPCS: 64490; 64491 ×2; 99152; J2250; J3010; J2795

== ENCOUNTER → 2023-11-10 | Outpatient (CLI) | payer MEDICARE ==
--- NOTE | 2023-12-25 15:39 | XR ---
Patient: Rousseau Margaret Ordering Physician: Unknown, Unknown ID: [id number] Phone, Pager: Phone: N/A Pager: N/A : [phone] Age/Gender: 68Y, F Primary Location: N/A Procedure: XR knee 4V bilatera l Study Date: 11/10/2023 11:12:00 AM EXAMINATION TYPE: XR knee 4V bilateral DATE OF EXAM: 11/19/2023 12:53 PM CLINICAL INDICATION: Knee pain COMPARISON: None. TECHNIQUE: XR knee 4V bilateral; examined in Frontal, lateral and oblique projections. FINDINGS: No evidence of any acute osseous pathology, soft tissue swelling, or joint effusion is no jasmine. Tricompartmental osteophyte formation involving the femoral condyles, tibial plateau and patella . Mild joint space narrowing. IMPRESSION: 1. No acute osseous pathology. 2. Mild tricompartmental osteoarthritic changes.
== END | disposition home or self-care (01) ==
LOC: RADXRMAIN 10:36
PROVIDERS: ATTEND Internal Medicine
DX: M17.0 Bilateral primary osteoarthritis of knee (principal)

== ENCOUNTER → 2023-11-13 | Outpatient (CLI) | payer MEDICARE | LOC: PNWHC3 14:15 | PROVIDERS: ATTEND Specialist | DX: M47.812 Spondylosis without myelopathy or radiculopathy, cervical region | CPT/HCPCS: 99211 ==

== ENCOUNTER → 2023-12-05 | Day surgery (SDC) | payer MEDICARE ==
[~2023-12-05] MED LIST: LACTATED RINGERS 1,000 ML IV SCH; MIDAZOLAM 2 MG/2 ML VIAL ONE; ROPIVACAINE 5MG/ML 20ML VIAL ONE; fentaNYL (PF) 50 MCG/ML 2 ML AMP ONE
[2023-12-05 13:02] VITALS: TEMP 97.2
[2023-12-05] MEDS: IV FLUID CONTINUATION 1,000 ML IV ONE ×3 (13:07→15:45)
--- NOTE | 2023-12-05 15:00 | P.PCN ---
Description of Procedure: Procedure done. left C4-5, C5-6 facet joint (C4.5,6 medial branch of dorsal ramus ) radiofrequency ablation under fluoroscopic guidance. Anesthesia. IV sedation with versed 2mg and fentanyl 100 microgram. Continuous pulse ox, EKG, blood pressure and verbal communication was maintained with the patient in OR. Blood loss. None. Indication. Patient has got the diagnoses of cervical spondylolysis, facet joint arthropathy with neck pain. Diagnostic medial branch block relieved significant pain. Discussed with the patient procedure, alternatives, complications including infection, bleeding, nerve damage, paralysis all of which could be permanent. Patient understands and all questions are answered. Procedure note. After getting consent patient in OR in prone position. Back of the neck was prepped with chlorhexidine and draped in sterile fashion. After injecting 5 mL of plain 1% lidocaine subcutaneously, a 20-gauge RFA needle was introduced under tunnel vision of the fluoroscope AP view at the waist of the articular pillar (lateral mass) at C4 vertebral level. In the lateral view of the fluoroscope it was confirmed that the tip of the needle stayed within the dorsal half of the articular pillar (lateral mass). C4-5 facet joint was targeted by blocking C4 and C5 medial branch, C5-6 facet joint was targeted by blocking C5 and C6 medial branch . After subcutaneous injection of lidocaine, 20-gauge RFA needle were introduced under tunnel vision of the fluoroscope AP view at the waist of the articular pillars (lateral mass) at C5 vertebral level. In the lateral view of the fluoroscope it was confirmed that the tip of the needle stayed within the dorsal half of the articular pillar (lateral mass). Af ter subcutaneous injection of lidocaine, 20-gauge RFA needle were introduced under tunnel vision of the fluoroscope AP view at the waist of the articular pillars (lateral mass) at C6 vertebral level. In the lateral view of the fluoroscope it was confirmed that the tip of the needle stayed within the dorsal half of the articular pillar (lateral mass). . After positive sensory and negative motor stimulation,injection of 1 ml of 0.5% Ropivacaine, radiofrequency ablation was done at 80 C's for 90 seconds. Second lesion was done at the same settings after rotating the needls 180 degrees. After the procedure needle was taken out and bandage was applied. Disposition. Patient tolerated the procedure well. No complication. Discharged home in stable condition.
[2023-12-05 15:43] VITALS: BP 133/62; PULSE 61; RESP 16
--- NOTE | 2023-12-28 10:36 | FL ---
EXAMINATION TYPE: FL guided pain mgmt statistic DATE OF EXAM: 12/05/2023 3:02 PM COMPARISON: Pre Operative Images if available both CT/MRI or plain film CLINICAL INDICATION: Female, 68 years old with history of RF CERVICAL; TECHNIQUE: FL guided pain mgmt statistic, multiple fluoroscopic images provided for procedure. Total fluoroscopy time: 30.7 seconds Total submitted images to PACS: 2 DAP: 0.21320 mGym2 Gycm2 uGym2 cGycm2 or equivalent. FINDINGS: Fluoroscopic images during injection for pain management demonstrate multilevel degeneration changes throughout the spine. No evidence for fracture. No acute process identified. IMPRESSION: 1. No evidence for intraoperative complication. 2. Please see the operative/procedural note for further details. [facility], , 12/28/2023 10:33 AM
== END ==
LOC: ORPAIN 12:37
PROVIDERS: ATTEND Pain Medicine Interventional Pain Medicine
DX: M47.812 Spondylosis without myelopathy or radiculopathy, cervical region
CPT/HCPCS: 64633; 64634; 99152; 99153

== ENCOUNTER → 2023-12-26 | Outpatient (CLI) | payer MEDICARE ==
--- NOTE | 2023-12-27 10:24 | MM ---
Reason for Exam: Screening (asymptomatic). Last mammogram was performed 1 year(s) and 2 month(s) ago. Patient History: Menarche at age 17. First Full-Term at age 23. Postmenopausal. Patient has history of breast feeding. 2019, Bilateral Implants. 1989, Bilateral Implants. Sister had breast cancer, age 55. Risk Values: Samantha 5 year model risk: 2.9%. NCI Lifetime model risk: 10.3%. Prior Study Comparison: 05/14/2018 Bilateral Screening Mammogram, [facility]. 02/18/2020 Bilateral Screening Mammogram, [facility]. 11/15/2022 Bilateral MG 3D screen mammo imp/cad., [facility]. Tissue Density: There are scattered areas of fibroglandular density. Findings: Analyzed By CAD. Bilateral breast implants appear intact. Right breast: There is no suspicious group of microcalcifications or new suspicious mass. Left breast: There is no suspicious group of microcalcifications or new suspicious mass. Overall Assessment: Benign, BI-RAD 2 Management: Screening Mammogram of both breasts in [address] [facility] will attempt to contact patient to return for supplemental views and ultrasound if indicated. Patient should continue monthly self-breast exams. A clinical breast exam by your physician is recommended on an annual basis. This exam should not preclude additional follow-up of suspicious palpable abnormalities. Note on Samantha scores and lifetime risk: 1. A Samantha score greater than 3% is considered moderate risk. If this is the case, consider specialist referral to assess eligibility for a risk reducing agent. 2. If overall lifetime risk for the development of breast cancer is 20% or higher, the patient may qualify for future screening with alternating mammogram and breast MRI. [facility], , 12/27/2023 10:21 AM. Electronically signed and approved by: Wilfredo Powers DO
== END | disposition home or self-care (01) ==
LOC: RADMAMWWP 15:16
PROVIDERS: ATTEND Internal Medicine
CPT/HCPCS: 77063; 77067

== ENCOUNTER 2023-12-28 08:53 | Day surgery (SDC) | payer MEDICARE ==
[2023-12-28 09:19] VITALS: RESP 14; TEMP 97.6
[2023-12-28] MEDS: LACTATED RINGERS 1,000 ML IV SCH (09:28)
[2023-12-28] MEDS: IV FLUID CONTINUATION 1,000 ML IV ONE ×2 (09:29→10:07)
[2023-12-28] MEDS ORDERED: DEXAMETHASONE SOD PHOSPHATE 10 MG/ML 1 ML VIAL ONE (09:41)
[2023-12-28] MEDS ORDERED: fentaNYL (PF) 50 MCG/ML 2 ML AMP ONE (09:41)
[2023-12-28] MEDS ORDERED: ROPIVACAINE 5MG/ML 20ML VIAL ONE (09:41)
[2023-12-28] MEDS ORDERED: MIDAZOLAM 2 MG/2 ML VIAL ONE (09:41)
--- NOTE | 2023-12-28 10:02 | P.PCN ---
Date of Procedure: 12/28/23 Description of Procedure: Pre- and Post-operative Diagnosis: Cervical Facet Arthropathy/ cervical spondylosis without myelopathy Procedure: Radio Frequency Ablation (RFA) of right cervical C4-C5, and C5-C6 level medial branch (total 2 levels) Surgeon: Amarjit Ross Anesthesia: Local: 1% Lidocaine, IV sedation : Versed 2 mg, and fentanyl 50 mcg +50 mcg Patient supervision timings: Complications: none Estimated blood loss: None Specimen removed: None Fluoroscopic image: Saved to patient electronic medical records. Indications for Procedure: The patient has been suffering from chronic neck pain, migraine headaches. The patient had significant pain relief after diagnostic medial branch block in the same levels, for two times. Came here for radiofrequency ablation for longer pain relief for longer pain relief. Procedure and Findings: The patient was seen and examined. The written informed consent was obtained after explaining all risks, benefits and alternatives of the procedure to the patient. The patient was brought to the procedure room and was placed in the prone position on the operating table. A pillow was placed under the upper chest. Standard anesthesia monitoring was done through out the procedure. Timeout was completed. The skin preparation was done with ChloraPrep, and draping was done in usual sterile fashion. Sterile technique was observed throughout the procedure. Under biplanar fluoroscopic guidance, right side cervical-4, 5 and 6 levels articular pillars were identified. 4 ml of 1% Lidocaine was injected with a 25 gauge needle to achieve adequate local anesthesia of the skin and subcutaneous tissue. A 18 inch RF needle with 10 mm active tip was placed and advanced targeting the center of the waist of the articular pillars keeping the fluoroscope in the AP view. A bony contact was obtained and then fluoroscope was changed to lateral view. Under direct fluoroscopic view, the needle was advanced close to the center of the "trapezoid area" formed by the articular pillars. The nerve stimulation was checked for all levels; it elicited only paraspinal muscle contraction, and was negative for any root stimulation. At each level, 1 ml of 0.5% ropivacaine preservative-free solution mixed with 10 mg of dexamethasone was injected , which contain and RFA was done at 80 degrees Celsius for 90 seconds. At the end of the procedure needle tips retracted more than centimeter and then injected 0.5 mL of 0.5% preservative-free ropivacaine for skin and subcutaneous tissue infiltration. The needles were removed intact, area was cleaned and bandages were applied. Disposition : The patient tolerated the procedure very well. The patient was transferred to the recovery room and remained stable until discharged home. The patient was given detailed discharge instructions for infection, bleeding, and increased pain at the injection site, and was advised to seek immediate medical attention should significant side effects develop. The patient scheduled with our Pain Clinic within 4 -8 weeks for follow-up visit.
[2023-12-28 10:38] VITALS: BP 122/57; PULSE 56
--- NOTE | 2023-12-28 10:40 | FL ---
EXAMINATION TYPE: FL guided pain mgmt statistic DATE OF EXAM: 12/28/2023 10:03 AM COMPARISON: Pre Operative Images if available both CT/MRI or plain film CLINICAL INDICATION: Female, 68 years old with history of Cerv Rad Freq; TECHNIQUE: FL guided pain mgmt statistic, multiple fluoroscopic images provided for procedure. Total fluoroscopy time: 20.3 seconds Total submitted images to PACS: 2 DAP: 0.25384 mGym2 Gycm2 uGym2 cGycm2 or equivalent. FINDINGS: Fluoroscopic images during injection for pain management demonstrate multilevel degeneration changes throughout the spine. No evidence for fracture. No acute process identified. IMPRESSION: 1. No evidence for intraoperative complication. 2. Please see the operative/procedural note for further details. [facility], , 12/28/2023 10:38 AM
== END 2023-12-28 10:50 | disposition home or self-care (01) ==
LOC: ORPAIN 08:53
DX: M47.812 Spondylosis without myelopathy or radiculopathy, cervical region
CPT/HCPCS: 64633; 64634; 99152

== ENCOUNTER → 2024-01-15 | Outpatient (CLI) | payer MEDICARE ==
[2024-01-15 14:17] VITALS: BP 137/79; PULSE 55; RESP 17; TEMP 98
--- NOTE | 2024-01-15 15:03 | P.PAINPG ---
PQRS Measure Charge Sheet Comment: HISTORY OF PRESENT ILLNESS: A 68 yr old female presents today w severe and chronic neck pain x 1 yr secondary to radiculopathy, spondylosis and facet arthropathy without myelopathy for evaluation s/p BL RFA C4-C5/ C5-C6. Pt states she experienced 50 % pain relief s/p procedure. Pt states pain level is provoked at 6 /10 in intensity, constant, localized in the lower cervical spine, predominantly axial, stabbing in character w occasional shooting pain L & R of midline. Pain is provoked by over activity. Pain is alleviated by injections, PT integrated w massage x 6 wks which ended in May 2023, physician guided home exercise regimen daily since Apr 2023, use of a TENS unit at home, cervical traction at home, heat, medications, topical, repositioning and rest. Pt has C3-C5 scheduled 01/29/24. Interventional proceudres include PAMELA C6-C7 x1, BL RFA C4-C5/ C5-C6 (Nov/Dec 2023) Medications include Lyrica, Voltaren gel REVIEW OF ORGAN SYSTEMS: CONSTITUTIONAL: No fevers or chills. No recent weight loss. NEUROLOGICAL: + numbness and tingling along the distal extremities. No seizure disorders or headaches. MUSCULOSKELETAL: + pain PSYCHIATRIC: Denies current depression or suicidal thoughts. Physical Examinations : Constitutional : Cooperative , not in acute distress . Neurologic : Cranial nerve II to XII intact. No focal neurological deficits. Psychiatric : alert & oriented x 3. Matching mood & appropriate affect. Judgment & insight intact. Musculoskeletal : Cervical Spine Motor strength in the deltoid and bic eps: Normal right side. Normal Left side Motor strength biceps and the wrist extensors: Normal right side . Normal left side Motor strength in the triceps muscle: Normal right side. Normal left side Deep tendon reflexes: Normal at the biceps. Normal at Brachioradialis. Normal at triceps Vertebral body tenderness to deep palpation Cervical facet loading test: positive b ilaterally C4-C5, C5-C6 Spurling test: positive bilaterally Neck distraction test: positive bilaterally Sindy sign: positive bilaterally Lumbar spine Motor strength lower extremities ,thigh and legs 5/5 Right side , 5/5 Left side Deep tendon reflexes : Normal Knee Jerk. Normal Ankle Jerk Vertebral body tenderness over Jones Test positive Lumbar facet Loading Test: positive Right / positive Left Range of motion of the lumbar spine Flexion 30 degrees, extension 10 degrees Straight Leg Raise test: Left/ Right positive at degree Laura test: positive right / positive left. Severe tenderness over the Sacroiliac joint on the Right / Left sides Gaenslen test: positive bilaterally Seated flexion test: positive bilaterally. Sacral spine : Severe tenderness over the Sacroiliac joint: right side / left side Range of motion: Flexion of the lumbar spine <60 degrees Range of motion: Extension of the lumbar spine <20 degrees Gaenslen's Test positive Laura test: positive right side / left side Thigh Thrust Test Sacral Thrust Test Imaging: MRI noncontrast of the cervical spine from 05/03/2023 reviewed Assessment/ Plan : Cervical radiculopathy Will undergo C3-C5 ACDF in Jan 2024 and july RTC to our clinic on an as needed basis. All questions answered. I have spent greater than 30 minutes on patient care today. Dr Juarez was available by phone for the evaluation of this patient. The time was used to review the medical records including relevant urine studies and Prescription history (MAPs), review of the available imaging, evaluation and examination of the patient, coordination of care with the medical staff and if applicable referring physicians, as well as creation of the medical record PQRS Narrative: Hx Alcohol Use (MH) No Home Medications: Ambulatory Orders Atorvastatin [Lipitor] 40 mg PO HS 05/24/23 amLODIPine [Norvasc] 2.5 mg PO HS 05/24/23 Cyanocobalamin (Vitamin B-12) [Vitamin B-12] 1,000 mcg PO DAILY 06/08/23 Diclofenac Sodium 50 mg PO TID 06/08/23 Magnesium 250 mg PO DAILY 06/08/23 Multivitamins, Thera [Multivitamin (formulary)] 1 tab PO DAILY 06/08/23 Pregabalin 150 mg PO BID 06/08/23 S-Adenosylmethionine Sul Tosyl [Abner-E] 400 mg PO QAM 06/08/23 Turmeric Root Extract [Turmeric] 500 mg PO DAILY 06/08/23 Ubidecarenone [Co Q-10] 100 mg PO DAILY 06/08/23 Controlled Substance Measures - Controlled Substance Measures Is patient prescribed a controlled substance at discharge?: No
== END ==
LOC: PNWHC3 13:48
PROVIDERS: ATTEND Specialist
DX: M47.812 Spondylosis without myelopathy or radiculopathy, cervical region
CPT/HCPCS: 99211

== ENCOUNTER → 2024-01-24 | Outpatient (CLI) | payer MEDICARE | END | disposition home or self-care (01) | LOC: LABPAT 08:53 | PROVIDERS: ATTEND Orthopaedic Surgery | DX: Z01.818 Encounter for other preprocedural examination (principal); Z22.322 Carrier or suspected carrier of Methicillin resistant Staphylococcus aureus; M50.20 Other cervical disc displacement, unspecified cervical region; M47.22 Other spondylosis with radiculopathy, cervical region | CPT/HCPCS: 36415; 86850; 86900; 86901; 87070 ==

== ENCOUNTER 2024-01-29 05:43 | Day surgery (SDC) | payer MEDICARE ==
[2024-01-24 11:34] VITALS: BMI 35.3
[~2024-01-29 05:43] MED LIST changes: -LACTATED RINGERS 1,000 ML IV SCH; -MIDAZOLAM 2 MG/2 ML VIAL ONE; +ONDANSETRON 4 MG/2 ML VIAL IVP PRN; -ROPIVACAINE 5MG/ML 20ML VIAL ONE; +TRANEXAMIC 1,000 MG/100ML-NACL 1,000 MG in SALINE 1 100ML.BAG IVPB PRN; -fentaNYL (PF) 50 MCG/ML 2 ML AMP ONE
--- NOTE | 2024-01-29 06:17 | P.HPOR ---
History of Present Illness H&P Date: 01/24/24 .D:Date: 01/24/24 : 08:07am .T:Title: H&P; SURGICAL RATIONALE AND RISK DISCUSSION Patient: Argelia Rousseau Planned Procedure: C3-6 Anterior Cervical Discectomy and Fusion Surgery Date: January 29, 2024 Surgical Indication: Ms. Rousseau is a 68-year-old female presenting with progressive cervical myeloradiculopathy. 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 Rousseau regarding the risks, benefits, and alternatives to surgery. Specific risks discussed include but are not limited to: * General Surgical Risks: * Infection Bleeding Blood clots Anesthesia complications Medical complications * Procedure-Specific Risks: * Dysphagia Dysphonia Hoarseness C5 palsy New neurological deficits Hardware failure/malposition Pseudarthrosis Adjacent segment disease Dural tear/CSF leak Need for future surgery Incomplete relief of symptoms Worsening of symptoms * Location-Specific Risks: * Injury to surrounding structures: * Esophagus Trachea Carotid artery Recurrent laryngeal nerve Vertebral artery Spinal cord Nerve roots Patient Understanding: Ms. Rousseau demonstrates good understanding of: * Her condition and its natural history The proposed surgical intervention Potential risks and complications Expected recovery course Alternative treatment options Post-operative restrictions and rehabilitation Pre-operative Planning: * Medical clearance with Dr. Plunkett Pre-operative testing: * Labs EKG CXR CT cervical spine for surgical planning * Review of medications/discontinuation of blood thinners NPO after midnight before surgery Arrange post-operative care/support Follow-up Plan: * 2 weeks post-op for wound check 6 weeks post-op for x-rays and evaluation 3 months post-op for progress check Further follow-up as needed After thorough discussion, Ms. Rousseau wishes to proceed with surgery as planned. She has had all questions answered and demonstrates appropriate understanding of the proposed procedure, its risks, and benefits. Past Medical History Past Medical History: Hyperlipidemia, Hypertension Additional Past Medical History / Comment(s): Cervical stenosis/bulging discs/pinched nerves, numbness and pain arms and left hand numbness. History of Any Multi-Drug Resistant Organisms: None Reported Past Surgical History: Section Additional Past Surgical History / Comment(s): Colonoscopy, Section X2. Past Anesthesia/Blood Transfusion Reactions: No Reported Reaction Additional Past Anesthesia/Blood Transfusion Reaction / Comment(s): Never has had general anesthesia. Smoking Status: Former smoker, Vaper - Past Family History Father Family Medical History: Cancer Additional Family Medical History / Comment(s): of prostate cancer at age 52 yrs. Mother Additional Family Medical History / Comment(s): Fall with hip surgery, 2nd POD, unknown cause. Medications and Allergies Home Medications Medication Instructions Recorded Confirmed Type Atorvastatin [Lipitor] 40 mg PO HS 05/24/23 01/24/24 History amLODIPine [Norvasc] 2.5 mg PO HS 05/24/23 01/24/24 History Cyanocobalamin (Vitamin B-12) 1,000 mcg PO DAILY 06/08/23 01/24/24 History [Vitamin B-12] Diclofenac Sodium 50 mg PO TID 06/08/23 01/24/24 History Magnesium 250 mg PO DAILY 06/08/23 01/24/24 History Multivitamins, Thera [Multivitamin 1 tab PO DAILY 06/08/23 01/24/24 History (formulary)] Pregabalin 150 mg PO BID 06/08/23 01/24/24 History S-Adenosylmethionine Sul Tosyl 400 mg PO QAM 06/08/23 01/24/24 History [Abner-E] Turmeric Root Extract [Turmeric] 500 mg PO DAILY 06/08/23 01/24/24 History Ubidecarenone [Co Q-10] 100 mg PO DAILY 06/08/23 01/24/24 History Allergies Allergy/AdvReac Type Severity Reaction Status Date / Time bee stings, hornet stings Allergy Swelling Uncoded 01/24/24 11:14 Physical Examination Osteopathic Statement: *. No significant issues noted on an osteopathic structural exam other than those noted in the History and Physical/Consult.
[2024-01-29] MEDS: ONDANSETRON 4 MG/2 ML VIAL IVP ONE (06:58)
[2024-01-29] MEDS: DEXAMETHASONE SOD PHOSPHATE 4 MG/ML 1 ML VIAL IV ONE (06:58)
[2024-01-29] MEDS: ACETAMINOPHEN TAB 500 MG TAB PO PRN (06:59)
[2024-01-29] MEDS: LACTATED RINGERS 1,000 ML IV SCH (06:59)
[2024-01-29] MEDS: GABAPENTIN 300 MG CAP PO PRN (07:00)
[2024-01-29] MEDS: IV FLUID CONTINUATION 1,000 ML IV ONE ×2 (07:24)
[2024-01-29] MEDS ORDERED: PHENYLEPHRINE 10 MG/ML VIAL ONE (07:33)
[2024-01-29] MEDS ORDERED: PROPOFOL 10 MG/ML 20 ML VIAL IV ONE (07:33)
[2024-01-29] MEDS ORDERED: ROCURONIUM 10 MG/ML (5 ML VIAL) IV ONE (07:33)
[2024-01-29] MEDS ORDERED: TRANEXAMIC 1,000 MG/100ML-NACL PREMIX BAG ONE (07:33)
[2024-01-29] MEDS ORDERED: MIDAZOLAM 2 MG/2 ML VIAL ONE (07:33)
[2024-01-29] MEDS ORDERED: GLYCOPYRROLATE 0.2 MG/ML 2 ML VIAL ONE (07:33)
[2024-01-29] MEDS ORDERED: NEOSTIGMINE 1 MG/ML 10 ML VIAL ONE (07:33)
[2024-01-29] MEDS ORDERED: fentaNYL (PF) 50 MCG/ML 2 ML AMP ONE (07:33)
[2024-01-29] MEDS ORDERED: SUCCINYLCHOLINE CHLORIDE 200 MG/10 ML VIAL IV ONE (07:33)
[2024-01-29] MEDS: THROMBIN (BOVINE) 5,000 UNIT VIAL TOPICAL ONE (08:13)
[2024-01-29] MEDS ORDERED: HYDROmorphone 2 MG/ML 1 ML SYRINGE IVP PRN (10:15)
--- NOTE | 2024-01-29 10:17 | FL ---
EXAMINATION TYPE: FL guidance operating room DATE OF EXAM: 01/29/2024 HISTORY: Fluoroscopy time Total dose area product (DAP) in uGy*m?, mGy*cm? (or similar): 1.4855 IMPRESSION: 1. Fluoroscopy time. [facility], , 01/29/2024 10:15 AM
[2024-01-29] MEDS: KETOROLAC 15 MG/ML 1 ML VIAL IVP STA (10:33)
[2024-01-29] MEDS: HYDROmorphone 0.5 MG/0.5 ML SYRINGE IVP PRN ×2 (10:34→18:02)
[2024-01-29] MEDS: HYDROcodone/APAP 10-325MG 1 EACH TAB PO PRN (13:58)
--- NOTE | 2024-01-29 18:08 | P.CONS ---
History of Present Illness - Reason for Consult Consult date: 01/29/24 - Chief Complaint Medical management - History of Present Illness 69-year-old woman with a history of hypertension, hyperlipidemia presented for cervical decompression. Medicine was consulted for medical management. Patient has a history of hypertension, hyperlipidemia. She does not surgery went well, pain is decently controlled. She has no other complaints at this time. She is hemodynamically stable labs and images were reviewed. Gen: In NAD, non-toxic HEENT: normocephalic, atraumatic, hearing acuity is intant, mucous membranes moist CVS: perfusing all extremities well, no pitting edema, Respiratory: symmetric chest expansion, no accessory muscle use, GI: soft, NTTP, ND, : no suprapubic tenderness, no CVA tenderness MSK/Derm: no rashes, cyanosis Neuro: CN II-XII intact, no motor weakness, Psych: cooperative, euthymic mood, judgment and insight is intact All Systems reviewed and pertinent positives and negatives noted in HPI, all other symptoms are negative Assessment/plan: Hypertension Hyperlipidemia -Resume home medications -Morning basic metabolic panel, CBC Cervical decompression DVT prophylaxis -Care per primary team Past Medical History Past Medical History: Hyperlipidemia, Hypertension Additional Past Medical History / Comment(s): Cervical stenosis/bulging discs/pinched nerves, numbness and pain arms and left hand numbness. History of Any Multi-Drug Resistant Organisms: None Reported Past Surgical History: Section Additional Past Surgical History / Comment(s): Colonoscopy, Section X2. Past Anesthesia/Blood Transfusion Reactions: No Reported Reaction Additional Past Anesthesia/Blood Transfusion Reaction / Comm: Never has had general anesthesia. Past Psychological History: No Psychological Hx Reported Additional Psychological History / Comment(s): Pt resides with son/j luis-in-law and grandchildren. No device. Smoking Status: Former smoker, Vaper Past Alcohol Use History: Rare Additional Past Alcohol Use History / Comment(s): Quit smoking 7 yrs ago. Vapes - no nicotine in it for last month. Past Drug Use History: None Reported - Past Family History Father Family Medical History: Cancer Additional Family Medical History / Comment(s): of prostate cancer at age 52 yrs. Mother Additional Family Medical History / Comment(s): Fall with hip surgery, 2nd POD, unknown cause. Medications and Allergies Home Medications Medication Instructions Recorded Confirmed Type Atorvastatin [Lipitor] 40 mg PO HS 05/24/23 01/29/24 History amLODIPine [Norvasc] 2.5 mg PO HS 05/24/23 01/29/24 History Cyanocobalamin (Vitamin B-12) 1,000 mcg PO DAILY 06/08/23 01/29/24 History [Vitamin B-12] Diclofenac Sodium 50 mg PO TID 06/08/23 01/29/24 History Magnesium 250 mg PO DAILY 06/08/23 01/29/24 History Multivitamins, Thera [Multivitamin 1 tab PO DAILY 06/08/23 01/29/24 History (formulary)] Pregabalin 150 mg PO BID 06/08/23 01/29/24 History S-Adenosylmethionine Sul Tosyl 400 mg PO QAM 06/08/23 01/29/24 History [Abner-E] Turmeric Root Extract [Turmeric] 500 mg PO DAILY 06/08/23 01/29/24 History Ubidecarenone [Co Q-10] 100 mg PO DAILY 06/08/23 01/29/24 History Allergies Allergy/AdvReac Type Severity Reaction Status Date / Time bee stings, hornet stings Allergy Swelling Uncoded 01/29/24 06:30 Physical Exam Osteopathic Statement: *. No significant issues noted on an osteopathic structural exam other than those noted in the History and Physical/Consult. Vitals: Vital Signs Temp Pulse Resp BP Pulse Ox 01/29/24 13:45 68 159/82 98 01/29/24 13:30 78 157/81 94 L 01/29/24 13:15 80 148/76 99 01/29/24 13:00 65 141/68 99 01/29/24 12:45 77 142/97 99 01/29/24 12:35 86 16 01/29/24 12:30 96.9 F L 63 17 146/78 99 01/29/24 12:01 86 16 155/70 97 01/29/24 11:46 64 16 156/70 99 01/29/24 11:31 70 16 149/67 96 01/29/24 11:14 68 16 145/64 96 01/29/24 10:59 68 16 148/58 96 01/29/24 10:44 70 16 159/72 94 L 01/29/24 10:29 70 16 165/75 97 11/04/24 10:16 86 16 168/73 97 01/29/24 07:10 98.0 F 64 16 125/60 95 Intake and Output 01/29/24 01/29/24 01/29/24 06:59 14:59 22:59 Intake Total 1450 Output Total 150 Balance 1300 Intake: IV 1450 Output: Urine 100 Estimated Blood Loss 50 Other: Voiding Method Indwelling Catheter Weight 82.5 kg
--- NOTE | 2024-01-29 18:13 | CT ---
EXAMINATION TYPE: CT cervical spine wo con DATE OF EXAM: 01/29/2024 5:51 PM COMPARISON: None. CLINICAL INDICATION: Female, 69 years old with history of Post-op C3-C6 ACDF; Post-op C3-C6 ACDF. TECHNIQUE: Axial CT images from the skull base to the inferior aspect of T2 we obtained without intra venous contrast. Coronal and sagittal reformatted images were also reviewed. Contrast used: mL of , (if blank None) Oral contrast used: (if blank None) CT DLP: 245.1 mGycm, Automated exposure control for dose reduction was used. FINDINGS: Postsurgical changes to the spine with fixation hardware intact. Subcutaneous lucencies compatible wi th recent surgery present. Drainage catheter terminates in the right lateral neck. No evidence of fra cture. Fixation hardware limits evaluation. No evidence for significant spinal canal or neural forami nal stenosis. IMPRESSION: No immediate postop complication. Fixation hardware intact. [facility], , 01/29/2024 6:11 PM
[2024-01-29] MEDS: ATORVASTATIN 40 MG TAB PO SCH (20:17)
[2024-01-29] MEDS: PREGABALIN 100 MG CAP PO SCH (20:18)
[2024-01-29] MEDS: amLODIPine 2.5 MG TAB PO SCH (20:19)
[2024-01-29] MEDS: CYCLOBENZAPRINE 5 MG TAB PO PRN (22:36)
[2024-01-30 03:03] VITALS: BP 131/73; PULSE 59; RESP 16; TEMP 98.9
[2024-01-30] MEDS: HYDROcodone/APAP 5-325MG 1 EACH TAB PO PRN (05:37)
--- NOTE | 2024-01-30 07:22 | P.OP ---
Date of Procedure: 01/29/24 Preoperative Diagnosis: 1. 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 UE RADICULOPATHY 3. UE WEAKNESS 4. NECK PAIN 5. MYELOPATHY Postoperative Diagnosis: 1. 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 UE RADICULOPATHY 3. UE WEAKNESS 4. NECK PAIN 5. MYELOPATHY Procedure(s) Performed: 1. C3-4 ANTERIOR CERVICAL ARTHRODESIS 2. C4-5 ANTERIOR CERVICAL ARTHRODESIS 3. C5-6 ANTERIOR CERVICAL ARTHRODESIS 4. C3-6 ANTERIOR CERVICAL INSTRUMENTATION 5. C3-4, C4-5, C5-6 INSERTION OF BIOMECHANICAL DEVICE, CAGES x3 USE OF IONM USE OF IO MICROSCOPE Implants: CHEL ANKER C 8MM, 7MM, 7MM 12, 10, 14MM SCREWS MAGNATOS, AUTOGRAFT Anesthesia: GETA Surgeon: Usama Huntley Brush Material Preparer #1: Mendy Augustin (WAS PRESENT AND ASSISTED WITH ALL ASPECTS OF THEC ASE FROM POSITION TO DRESSING PLACEMENT) Estimated Blood Loss (ml): 50 IV fluids (ml): 1,100 Urine output (ml): 0 Pathology: none sent Condition: stable Disposition: PACU Indications for Procedure: Patient: Argelia Rousseau Planned Procedure: C3-6 Anterior Cervical Discectomy and Fusion Surgery Date: January 29, 2024 Surgical Indication: Ms. Rousseau is a 68-year-old female presenting with progressive cervical myeloradiculopathy. She demonstrates clinical findings including: * Progressive upper extremity weakness (3-4/5 in multiple muscle groups) Positive Hart's sign bilaterally Hyperreflexia (3+ reflexes) Decreased hand dexterity and patient safety officer strength Failed conservative management including: * Multiple rounds of physical therapy Multiple epidural and facet injections Medication management Activity modification Imaging Findings Supporting Surgery: * MRI (05/03/23) demonstrates: * Severe spondylotic changes C3-6 Complete disc collapse at C3-4 and C4-5 Myelomalacia at C3-4 and C4-5 Cord signal changes at C5-6 Severe bilateral foraminal stenosis Moderate to severe central stenosis Surgical Goals: * Decompress the spinal cord to prevent further neurological deterioration Address radiculopathy symptoms Restore cervical lordosis Stabilize the involved segments Improve quality of life and function Risks Discussed: I had an extensive discussion with Ms. Rousseau regarding the risks, benefits, and alternatives to surgery. Specific risks discussed include but are not limited to: * General Surgical Risks: * Infection Bleeding Blood clots Anesthesia complications Medical complications * Procedure-Specific Risks: * Dysphagia Dysphonia Hoarseness C5 palsy New neurological deficits Hardware failure/malposition Pseudarthrosis Adjacent segment disease Dural tear/CSF leak Need for future surgery Incomplete relief of symptoms Worsening of symptoms * Location-Specific Risks: * Injury to surrounding structures: * Esophagus Trachea Carotid artery Recurrent laryngeal nerve Vertebral artery Spinal cord Nerve roots Patient Understanding: Ms. Rousseau demonstrates good understanding of: * Her condition and its natural history The proposed surgical intervention Potential risks and complications Expected recovery course Alternative treatment options Post-operative restrictions and rehabilitation Pre-operative Planning: * Medical clearance with Dr. Plunkett Pre-operative testing: * Labs EKG CXR CT cervical spine for surgical planning * Review of medications/discontinuation of blood thinners NPO after midnight before surgery Arrange post-operative care/support Follow-up Plan: * 2 weeks post-op for wound check 6 weeks post-op for x-rays and evaluation 3 months post-op for progress check Further follow-up as needed After thorough discussion, Ms. Rousseau wishes to proceed with surgery as planned. She has had all questions answered and demonstrates appropriate understanding of the proposed procedure, its risks, and benefits. Description of Procedure: C3-6 ACDF The patient was seen and examined in the preoperative area. All preoperative protocols were followed. Informed consent was obtained, risks and benefits of the procedure were discussed at length. Risks including bleeding infection damage to the surrounding tissue and risk of reoperation were discussed with the patient. Risk of anesthesia up to and including was discussed with the patient. These are outlined in the risk review. They were willing to accept these risks and all the risks of surgery. The patient was given a weight-based dose of antibiotics in the form of 2 g Ancef. The patient was seen and evaluated by the anesthesia team who deemed them fit for surgery. The site was marked, the patient was willing to proceed with the procedure. The patient was transferred to the operative suite by the Department of anesthesia. They were then drifted off to sleep by the department anesthesia and GETA was performed. The patient tolerated this well. Man catheter was placed by nursing staff, a-traumatically. Once confirmation of lines and ventilation the patient was transferred to a Supine Nilton table very carefully. All bony prominences including wrists, elbows, axilla, chest, hips, and thighs, and feet were padded very well. Special attention was paid to the genitalia, and these were padded accordingly. SCDs were placed on bilateral lower extremities and were connected. Arms were well padded and placed at their side thumbs up. Once in position, again we confirmed good ventilation capabilities and that lines were running appropriately. The patients Cervical spine was then exposed. 1010s were placed outlining the incision site. Standard alcohol was used to clean the incision site and allowed to dry. C-arm was used to bio-tres the patient and confirm level for incision which was marked with a skin marker. Operative briefing was performed with all teams and everyone in agreement to proceed. The patient was then prepped and draped in a normal sterile fashion. Timeout was then performed, and all parties agreed with the procedure to be performed. Transverse skin incision was then made on the right side of the patient's neck 3 cm and dissection taken down to the platysma which was split transversely. Sub platysma flap was made, and interval identified between SCM and medial structures. Omohyoid was visualized and protected. Blunt dissection taken down to the anterior cervical fascia which was identified. Blunt prob was then placed and lateral image taken which confirmed levels for operation. These levels were then marked with a bovi. Subperiosteal dissection of the longissimus muscles were then done over these levels identifying uncovertebral joints bilaterally. Retractor was then placed deep to these muscles and held in place with a bed arm. Whitmore pins were placed into C3 and C4 and gentle distraction taken out over the levels. Grey rongeur used to remove disc material. Operating microscope brought in for visualization. Complete discectomy performed at this level with curette, rongure and pituitary. High speed nikhil used to remove osteophytes anteriorly and posteriorly until PLL was identified. 6-0 up curette then used to identify the canal and ressect the PLL. 2-0 and 3-0 Kerrison used then to remove PLL and disc herniation and performed b/l foraminotomies. Once good decompression was accomplished, meticulous hemostasis was performed. Sizers were then placed under lateral fluoroscopy until the desired height and lordosis. Cage was then selected, packed with autograft and allograft and placed under lateral imaging. Once in good position it was tested and stable. Motors run before and after cage placement were stable. The wound was irrigated, and autograft placed lateral to the cage anteriorly for fusion. Whitmore pin was then removed from C3 and placed into C5 and bone wax placed in their void. Gentle distraction taken out over C4-5 now. Complete discectomy done at C4-5 as described including decompression, b/l foraminotomies and PLL resection. Burring of endplates was minimal, osteophytes removed as described. Spacers were then sized and placed under lateral imaging. Cage selected, packed with graft and placed under lateral images. Once in position, meticulous hemostasis performed, and motors remained stable before and after cage placement. AP image confirmed good placement of cages. Wound was irrigated. At C5-6, Whitmore pins were placed into C5 and C6 and gentle distraction taken out over the levels. Grey rongeur used to remove disc material. Operating microscope brought in for visualization. Complete discectomy performed at this level with curette, rongure and pituitary. High speed nikhil used to remove osteophytes anteriorly and posteriorly until PLL was identified. 6-0 up curette then used to identify the canal and ressect the PLL. 2-0 and 3-0 Kerrison used then to remove PLL and disc herniation and performed b/l foraminotomies. Once good decompression was accomplished, meticulous hemostasis was performed. Sizers were then placed under lateral fluoroscopy until the desired height and lordosis. Cage was then selected, packed with autograft and allograft and placed under lateral imaging. Once in good position it was tested and stable. Motors run before and after cage placement were stable. The wound was irrigated, and autograft placed lateral to the cage anteriorly for fusion. Anterior instrumentation was then done on each level with 10, 12, 14 mm screws as appropriate. Screws were drilled measured and placed. All locking mechanisms were set, and all screws had good purchase. Final AP and lateral images taken confirmed good placement of hardware and good reduction and protestant of height. The wound was then irrigated copiously with NSS. Surgicel placed deep in the wound. A deep drain placed out a separate incision and sewed into place. Layered closure then performed with 3-0 Vicryl in the platysma and sub-Q tissue. 2-0 Nylon placed in the skin The wound was then cleaned, dried and skin glue placed. Once glue dried telfa, 4x4, and tegaderms were placed for dressing. The patient was then transferred back to their hospital bed a-traumatically. The drain continued to hold suction. They were placed in a soft collar. They were then awakened by the department of anesthesia having tolerated the procedure well without complications.
[2024-01-30 08:34] LABS: Basophils # (A) 0.03 X 10*3/uL (0.00-0.10); Basophils % (A) 0.2 %; Eosinophils # (A) 0.01 X 10*3/uL (0.04-0.35); Eosinophils % (A) 0.1 %; HCT 37.8 % (37.2-46.3); HGB 11.5 g/dL (12.0-15.0); Lymphocytes # (A) 1.74 X 10*3/uL (0.90-5.00); Lymphocytes % (A) 10.7 %; MCH 25.2 pg (27.0-32.0); MCHC 30.4 g/dL (32.0-37.0); MCV 82.9 FL (80.0-97.0); Mean Platelet Volume 10.8 FL (9.5-12.2); Monocytes # (A) 1.15 X 10*3/uL (0.20-1.00); Monocytes % (A) 7.1 %; NRBC Per 100 WBC 0 X 10*3/uL (0.00-0.01); Neutrophils # (A) 13.23 X 10*3/uL (1.80-7.70); Neutrophils % (A) 81.5 %; Platelet Count 380 X 10*3/uL (140-440); RBC 4.56 X 10*6/uL (4.10-5.20); RDW 15.5 % (11.5-14.5); WBC 16.22 X 10*3/uL (4.50-10.00)
--- NOTE | 2024-01-30 08:42 | P.PN ---
Subjective Progress Note Date: 01/30/24 Principal diagnosis: 1. C3-C6 spondylosis with stenosis 2. Bilateral upper extremity radiculopathy with weakness 3. Cervicalgia 4. Cervical myelopathy Patient seen and examined this morning. Patient is resting comfortably in bed. Patient states that she has been up and ambulatory and tolerating activity well. Patient does have complaint of posterior cervical pain that radiates across the shoulders. She does report that her pain is managed on current regimen and utilizing ice packs. Surgical incision to the anterior cervical spine, edges are well-approximated with glue intact. ALIX drain has been discontinued, documented 25 mL output overnight. New dressing has been applied. Hard cervical collar is intact. Patient is looking forward to working with physical therapy and for discharge later today. Objective - Vital Signs Vital signs: Vital Signs Temp 98.9 F 01/30/24 03:02 Pulse 59 L 01/30/24 03:02 Resp 16 01/30/24 03:02 BP 131/73 01/30/24 03:02 Pulse Ox 98 01/30/24 03:02 FiO2 Intake & Output 01/29/24 01/30/24 01/30/24 18:59 06:59 18:59 Intake Total 1450 240 Output Total 1375 1200 Balance 75 -960 Weight 82.5 kg Intake: IV 1450 Intake, IV Titration 240 Amount Lactated Ringers 1,000 ml 240 @ 20 mls/hr IV .Q24H [facility] Rx#:[id number] Output: Drainage 25 Right Neck 25 Urine 1300 1200 Estimated Blood Loss 50 Other: Voiding Method Indwelling Catheter Indwelling Catheter - Exam Physical Examination General: The patient is awake and alert, in no acute distress Skin: Skin is warm and dry with no obvious rashes or lesions. Surgical incision to the anterior cervical spine, edges are well-approximated with glue intact. ALIX drain has been removed, 25 mL output overnight. Neck: The neck is supple, There is mild tenderness around the incision site, limited range of motion due to surgical procedure and hard cervical collar intact. Cardiovascular: There is a regular rate and rhythm. No murmur, rub or gallop is appreciated. Respiratory: Respirations are non-labored, breath sounds are equal. Gastrointestinal: Soft, non-distended, non-tender abdomen. Back: There is no tenderness to palpation in the midline, paralumbar, parathoracic or buttocks region. There is no obvious deformity . Musculoskeletal: ROM limited secondary to pain and stiffness from surgical procedure. Right: Shoulder abduction 4/5, elbow flexors 4/5, wrist dorsiflexors 4/5. finger abductor 4/5, conveyor loader 4/5, hip flexor 5/5, knee flexor 5/5, ankle dorsiflexor 5/5, ankle plantarflexion 5/5 and extensor hallucis 5/5. Left: Shoulder abduction 4/5, elbow flexors 4/5, wrist dorsiflexors 4/5. finger abductor 4/5, conveyor loader 4/5, hip flexor 4-/5, knee flexor 4/5, ankle dorsiflexor 5/5, ankle plantarflexion 5/5 and extensor hallucis 5/5. Neurological: CN 2-12 intact. There are no obvious motor or sensory deficits. Movement and coordination equal and intact. Sensory exam to light touch intact C5-T1 and intact from L2-S1. Reflexes 2/4 in bilateral upper and lower extremities. Negative Hoffmans, babinski, and clonus signs. Psychiatric: Cooperative, appropriate mood & affect, normal judgment. - Labs CBC & Chem 7: 01/30/24 04:06 Assessment and Plan Assessment: Postop day 1: C3-C6 ACDF Plan: -Appreciate direct sales consultant and team management. -Activity: Ambulate QID, OOB all meals, up and about, limit lifting bending twisting to less than 5 lbs. Use walker or cane if needed for stability. -Daily PT/OT, increase ambulation strength and balance. -Hard cervical collar on at all times, may utilize soft cervical collar in bed. -Pain control: Adequate at this time -Meds: reviewed -GI ppx: senna, Miralax -DVT PPX: Aspirin -Hygiene: Maintain dressing clean and dry. -Encourage IS 10x/hr -Dispo: Anticipate discharge home today *I reviewed and discussed this case with my attending Dr. Huntley, whom has reviewed this chart and films and is in agreement with assessment and plan of care as outlined above. I have personally seen and examined the patient, performed the documentation and the assessment and plan as written. Number of minutes spent on the visit: 20m.
--- NOTE | 2024-01-30 08:49 | P.DS ---
Providers Date of admission: 01/29/24 Expected date of discharge: 01/30/24 Attending physician: Usama Huntley DO Consults: 01/29/24 10:18 Consult Physician Routine Consulting Provider: Cleveland Sawyer Consult Reason/Comments: Medical Management Do you want consulting provider notified?: Yes Primary care physician: [facility] Course: hospital Course: The patient was evaluated preoperatively and found to have the diagnosis of Cervical spondylosis with stenosis, cervical myelopathy. They underwent appropriate preoperative care and were willing to undergo the intended procedure. They underwent a successful C3-C6 ACDF were recovered appropriately and sent to the floor. While on the floor they worked with physical therapy, occupational therapy and nursing to enhance their recovery experience. Their pain was well controlled through their stay and they were started on appropriate medications, DVT ppx modalities, activity and dietary needs. Daily labs were monitored closely, and transfusions were only used when necessary. Medicine as well as other consulting services have made their input and have helped with our team approach and multidisciplinary care. PT milestones have been met and passed and they have made the recommendation of Home for this patient and treating providers agree with this care path. The patient will be discharged home with appropriate medications, instructions and follow-up information and in stable condition. Patient Condition at Discharge: Good Plan - Discharge Summary Discharge Rx Participant: Yes New Discharge Prescriptions: New Sennosides/Docusate Sodium [Senna Plus 8.6-50 mg Softgel] 1 each PO DAILY PRN #20 capsule PRN Reason: Constipation cefaDROXiL [Duricef] 500 mg PO Q12HR #10 cap Cyclobenzaprine [Flexeril] 5 mg PO TID PRN #40 tablet PRN Reason: Muscle Spasm Pregabalin [Lyrica] 150 mg PO BID #60 cap HYDROcodone/APAP 10-325MG [Thurmond 10-325] 1 tab PO Q4-6H PRN #40 tab PRN Reason: Pain No Action Atorvastatin [Lipitor] 40 mg PO HS Ubidecarenone [Co Q-10] 100 mg PO DAILY S-Adenosylmethionine Sul Tosyl [Abner-E] 400 mg PO QAM Diclofenac Sodium 50 mg PO TID Pregabalin 150 mg PO BID Multivitamins, Thera [Multivitamin (formulary)] 1 tab PO DAILY amLODIPine [Norvasc] 2.5 mg PO HS Cyanocobalamin (Vitamin B-12) [Vitamin B-12] 1,000 mcg PO DAILY Magnesium 250 mg PO DAILY Turmeric Root Extract [Turmeric] 500 mg PO DAILY Discharge Medication List Atorvastatin [Lipitor] 40 mg PO HS 05/24/23 [History] amLODIPine [Norvasc] 2.5 mg PO HS 05/24/23 [History] Cyanocobalamin (Vitamin B-12) [Vitamin B-12] 1,000 mcg PO DAILY 06/08/23 [History] Diclofenac Sodium 50 mg PO TID 06/08/23 [History] Magnesium 250 mg PO DAILY 06/08/23 [History] Multivitamins, Thera [Multivitamin (formulary)] 1 tab PO DAILY 06/08/23 [Hi story] Pregabalin 150 mg PO BID 06/08/23 [History] S-Adenosylmethionine Sul Tosyl [Abner-E] 400 mg PO QAM 06/08/23 [History] Turmeric Root Extract [Turmeric] 500 mg PO DAILY 06/08/23 [History] Ubidecarenone [Co Q-10] 100 mg PO DAILY 06/08/23 [History] Cyclobenzaprine [Flexeril] 5 mg PO TID PRN #40 tablet 01/30/24 [Rx] HYDROcodone/APAP 10-325MG [Thurmond 10-325] 1 tab PO Q4-6H PRN #40 tab 01/30/24 [Rx] Pregabalin [Lyrica] 150 mg PO BID #60 cap 01/30/24 [Rx] Sennosides/Docusate Sodium [Senna Plus 8.6-50 mg Softgel] 1 each PO DAILY PRN #20 capsule 01/30/24 [Rx] cefaDROXiL [Duricef] 500 mg PO Q12HR #10 cap 01/30/24 [Rx] Follow up Appointment(s)/Referral(s): Bryon Pittman DO [Primary Care Provider] - 1 Week Usama Huntley DO [Doctor of Osteopathic Medicine] - 2 Weeks Activity/Diet/Wound Care/Special Instructions: Spine Discharge and Recovery Instructions Date of Surgery: 01/29/2024 Diagnosis: cervical spondylosis with stenosis, cervical myelopathy Procedure: C3-C6 ACDF Medications: See medication list All medication refills should be obtained through your primary care doctor or your clinic spine surgeon. Please discuss prescription refills at your follow up appointment. Do not call the hospital for medication refills. Activity: Encourage ambulation with assist of walker, Up and about 6-8x daily PT/OT daily work on balance, strength and mobility Up in chair with all meals Shower daily Brace: Use brace when up and about, do not wear in bed or shower Dressing: Leave your dressing in place for a total of 3 days post operatively. Then you may remove your dressing and leave open to air. Keep the area clean and if not able to keep area clean, then cover with sterile gauze and tape. Showering: You may shower 3 days after your procedure allowing soap and water to run over incision. Do not scrub. Do not soak. Blot dry. Follow up: Please confirm a follow up appointment with your surgeon 2 weeks post operatively. Please make an appointment to follow up with your PCP in 1-2 weeks after surgery for evaluation '3 phase, 3-week plan' POST OP WEEKS 1-3 1. Lifting/carrying/pushing/pulling limited to less than 5 pounds. 2. Do not sit for longer than 15 minutes at one time. Get up and walk around. Prolonged sitting is NOT advised. If you lay down, see if you can tolerate laying down on you front (belly side) 3. Walk for periods of 15 minutes = 1 mile but no longer; do it multiple times times each day. 4. Ice your low back after activity. POST OP WEEKS 3-6 1. Lifting limited to less than 20 pounds. 2. Do not sit for longer than 30 minutes at a time. Frequently change positions. Use a sit-to stand workstation or take frequent breaks from sitting if you have returned to work. 3. Walk for 30 minutes each day. If possible, do these three or more times a day POST OP WEEKS 6+ At your 6-week appointment we will give you a physical therapy referral to focus on a core stabilization and strengthening program. You should also work on leg & buttock strengthening, hamstring & quadriceps stretching, and continue a low impact aerobic activity program such as swimming, walking, or riding a stationary bicycle. During the initial 6 weeks after your surgery, you are at the highest risk of re-injuring your spine. You should generally avoid BLT's (bending, lifting and twisting combination motions) and follow the above guidelines to reduce the chance of reinjury. You can anticipate post op appointments in our office at approximately 3 weeks and 6 weeks after your surgery. INCISION CARE: If your incision is not draining you do NOT need to cover it with a dressing. Keep your incision clean, dry and intact. In most cases, we apply skin glue, staci or sutures to the incision at the time of surgery. This will be like a crust or have the appearance of a scab and will fall off in time on its own. The stitches or staci need to be removed at 3 weeks post op appointment. You may begin to shower 3 days after surgery (this allows the glue to jennings well). However, please avoid scrubbing the incision site or peeling off any of the skin glue. This will ensure optimal healing of your incision. Also, during this time avoid soaking the incision area in water - this includes swimming pools, hot tubs or baths. No ointments, lotions or oils on the incision until your surgeon allows. Leave staci, sutures or glue in place. Neurological dysfunction that comes on suddenly can also be a sign of a stroke. Below some common symptoms of a stroke are listed: B - balance difficulty such as sudden onset walking or leaning to one side - NEW E - eye problem such as sudden double vision or trouble seeing on one side - NEW F - Facial weakness or numbness on one side - NEW A - Arm or leg weakness or numbness on one side - NEW S - Slurred speech or difficulty with word finding - NEW T - Time is BRAIN! Call 911 as soon as you recognize these symptoms Diet: Consume a regular diet rich in vegetables and lean protein such as chicken or fish. You should consume in a ratio of approximately 20% fats|40% carbohydrates|40%protein. Vegetables, sweet potatoes, brown rice or quinoa are examples of good carbohydrates. Chips, white bread, cookies and sweets/sugar are examples of bad carbohydrates. Limit your bad carbs, go wild with good carbs. "Life's Simple 7" Guidelines as per [place] [employer] These will help you reclaim your life after surgery and relay tester helper in your recovery, keeping in mind your restrictions. (1) Get Active. Physical activity can help people lose weight, control high blood pressure and cholesterol, feel emotionally better, and sleep better. (2) Control Cholesterol. Avoid a diet high in saturated fat, trans fat, & cholesterol. Limit whole milk & cream, ice cream, butter, egg yolks, processed meats (like sausage and hot dogs), and fatty meats. Choose healthy foods that are low in saturated fat, trans fat and cholesterol which include: Fruits and vegetables, fiber rich grain products (like whole grain pasta and brown rice), lean meat such as chicken, fish, nuts, seeds, and legumes. (3) Eat Better. Eat small portions. Shop at the grocery with a list and do not stray from it. Tips for a healthy diet include: Limit sodium intake to less than 1500mg daily, avoid prepackaged, processed, and fast foods, choose a diet rich in fruits, vegetables, and whole grain, high fiber foods, and limit saturated & cholesterol in your diet. (4) Manage Blood Pressure. If you have high blood pressure, you should have a cuff at home so that you can check your blood pressure regularly. Be sure you have a good cuff. An arm one is generally better than a wrist one. Bring the cuff to a doctor's appointment to validate that the measurements that your cuff are taking are accurate. Take your blood pressure twice daily when you are sitting down and relaxing. Record the numbers in a log and bring this log with you to your doctors' appointments. (5) Lose Weight if your BMI is above 25. A healthy BMI is between 19-25. To calculate Your BMI, you may use a Standard BMI Calculator on the NIH BMI website: <www.nhlbi.nih.gov/guidelines/obesity/BMI/bmicalc.htm>. Weigh oneself daily. If you are overweight, set a goal to lose weight. A pound a week loss if needed is a good target. (6) Reduce Blood Sugar. Limit foods and liquids with "added sugars." (Added sugars include sucrose, fructose, glucose, maltose, dextrose, high fructose corn syrup, corn syrup, concentrated fruit juice and honey). (7) Stop Smoking. If you smoke, quitting smoking is one of the best things that you can do for your health. Smoking increases your risk of heart attack, stroke, and peripheral vascular disease, which is a build-up of plaque in your arteries. Please discard all the cigarettes and lighters in your house. Have a plan for what you will do when you have the urge to smoke. Direct and second- hand smoke shortens your life as well as the lives of your family, friends and others around you. For your health and the health of those around you, please consider quitting! Proper Bending Body Mechanics: Maintain a wide stance with one foot slightly in front of the other. Keep your back straight. Bend utilizing the strength in your hips and knees. Do not bend at the waist. Maintain the lifted object at your waist-level close to your body. Avoid lifting weight that causes immediately pain or pain anywhere in the body afterwards. Smoking/Nicotine If there was ever one thing that you could do to increase your overall health, decrease your risk of cardiovascular problems by about 39% the second you make the choice, it is to STOP SMOKING. Your body's most instant gratification is the second you stop smoking. We have all heard the studies, read the articles but it is true, smoking is extremely bad for your overall health, and moreover it is detrimental to your bone health. Nicotine, IN ANY FORM, kills bone cells, prevents your body from healing fractures, and significantly prolongs healing after surgery. In spine surgery specifically, it increases your risk of not healing your bones to create a fusion and increases your risk of having a revision surgery due to this up to 60%. I know it is hard. I know it feels impossible. But there are ways. Take control of your life. We are here to help you through it. And when you are ready, ask us and we can direct you to help if you desire. Use the START Plan to Quit Smoking (please visit the Helpguide.org website listed below for more information): S = Set a quit date. Choose a date within the next 2 weeks, so you have enough time to prepare without losing your motivation to quit. If you mainly smoke at work, quit on the weekend, so you have a few days to adjust to the change. T = Tell family, friends, and co-workers that you plan to quit. Let your friends and family in on your plan to quit smoking and tell them you need their support and encouragement to stop. Look for a quit beatriz who wants to stop smoking as well. You can help each other get through the rough times. A = Anticipate and plan for the challenges you'll face while quitting. Most people who begin smoking again do so within the first 3 months. You can help yourself make it through by preparing ahead for common challenges, such as nicotine withdrawal and cigarette cravings. R = Remove cigarettes and other tobacco products from your home, car, and work. Throw away all your cigarettes (no emergency pack!), lighters, ashtrays, and matches. Wash your clothes and freshen up anything that smells like smoke. Shampoo your car, clean your drapes and carpet, and steam your furniture. T = Talk to your doctor about getting help to quit. Your doctor can prescribe medication to help with withdrawal and suggest other alternatives. If you can't see a doctor, you can get many products over the counter at your local pharmacy or grocery store, including the nicotine patch, nicotine lozenges, and nicotine gum. Resources for Quitting Smoking: <https://www.[place]. ov/documents/[facility]/Quit_Tobacco_Resources_for_patients_313480_7.pdf> Supplementation: Take recommended dosages of Vitamin D and Calcium to help fortify your bones and help them to heal. See your health maintenance packet for dosages and recommended levels. DVT/VTE prophylaxis: You will be given compression stockings from the hospital. Wear these daily for the first two weeks after surgery. You may take them off at night. You may be prescribed a medication to help thin your blood. Take this as directed. If you are not prescribed this medication, early and frequent ambulation has been shown to be the best prophylaxis to deep vein thrombosis and sequelae related to this event. Discharge Disposition: HOME SELF-CARE
[2024-01-30 09:13] LABS: BUN/Creat Ratio 15.67 Ratio (12.00-20.00); Blood Urea Nitrogen 9.4 mg/dL (9.0-27.0); Calcium 9.2 mg/dL (8.7-10.3); Carbon Dioxide 25.2 mmol/L (21.6-31.8); Chloride 106 mmol/L (96-109); Glucose 119 mg/dL (70-110); Potassium 4.3 mmol/L (3.5-5.5); Sodium 141 mmol/L (135-145)
[2024-01-30] MEDS: MULTIVITAMINS, THERA 1 EACH TAB PO SCH (09:49)
[2024-01-30] MEDS: CYANOCOBALAMIN 500 MCG TAB PO SCH (09:50)
[2024-01-30] MEDS: MAGNESIUM OXIDE 400 MG TAB PO SCH (09:50)
[2024-01-30] MEDS: ASPIRIN 81 MG PO SCH (09:50)
[2024-01-30] MEDS: PREGABALIN 75 MG CAP PO SCH (10:06)
--- NOTE | 2024-01-30 11:38 | P.PN ---
Subjective Progress Note Date: 01/30/24 Hospital course: Patient is a pleasant 69-year-old female with a past medical history of hypertension, hyperlipidemia, and cervical stenosis and bulging disks with upper extremity radiculopathies. She is currently admitted under orthopedic surgery team and is status post C3-C6 cervical arthrodesis and instrumentation with insertion of biomechanical cage. We were consulted for medical management throughout hospitalization. Physical exam: Patient seen and fully evaluated at bedside this morning. Cervical collar in place. She reports that yesterday she felt great today she is feeling moderate postoperative pain. She denies having any difficulty swallowing and is clearing secretions without difficulties. Patient reports she feels ready to go home and is looking forward to recovering and feeling better. She denies having any other complaints or needs at this time. Vital signs reviewed and stable. General: Nontoxic, no distress and appears stated age. Derm: Skin warm and dry, normal coloration for ethnicity. Head: Atraumatic, normocephalic and symmetric. Hard c-collar in place. Dressing in place to anterior neck. Eyes: EOM's intact, no lid lag, and anicteric sclera Mouth: no lip lesions, mucus membranes moist Cardiovascular: regular rate and rhythm with normal S1S2, no murmur, positive posterior tibial pulses bilaterally, and cap refill < 2 seconds. Lungs: Respirations even, regular, and unlabored on room air. Lungs CTA bilaterally, no rhonchi, no rales, no wheezing, and no accessory muscle usage. Abdominal: soft, nontender to palpation, no guarding, no appreciable organomegaly Ext: ROM intact. No gross muscle atrophy, no edema, no contractures Neuro: Speech clear, face symmetrical and CN II-XII grossly intact with no noted focal neuro deficits Psych: Alert and oriented to person, place, time, and situation. Appropriate and pleasant affect. Assessment and Plan of Care: Status post C3-C6 cervical arthrodesis and instrumentation with insertion of biomechanical cage -Management per primary admitting orthospine surgery team including DVT prophylaxis, pain management, wound/dressing/drain management, and PT/OT. -Currently DVT prophylaxis with aspirin 81 mg daily, CASSI hose, and SCDs. Leukocytosis -Preoperative WBC count 9.27 and postoperative WBC count of 16.22. This is reactive secondary to surgical procedure, no signs of infection. No need for further intervention at this time. Hypertension -Monitor vital signs and continue daily medication regimen with amlodipine 2.5 mg nightly. Hyperlipidemia -Continue atorvastatin 40 mg nightly. Radiculopathy secondary to spinal stenosis -Continue Lyrica 150 mg twice daily. Data reviewed: -Vital signs reviewed. Blood pressure 131/73, heart rate 59, respiratory rate 16, temp 98.9 F, and SpO2 of 98% on room air. -Postoperative labs reviewed. CBC showing leukocytosis with WBC count of 16.22 and normocytic anemia with hemoglobin of 11.5. BMP was unremarkable with sodium 141, potassium 4.3, chloride 106, bicarb 25.2, and anion gap of 9.80 with renal function as follows BUN 9.4, creatinine 0.6, and GFR of 98. Blood glucose was 119. Patient is medically optimized and stable from medical perspective for discharge once cleared by primary admitting orthospine surgery team. Thank you for allowing us to participate in the care of this pleasant patient. Do not hesitate to contact us with questions. Someone can be reached from the [facility] hospitalist group all hours of the day at [phone] or via perfect serve. Patient was seen independently by Nurse Pracitioner. This document was prepared using [employer] dictation software. Please allow for errors in machine iii coremaker, while rare they do occur. Carlos Gomez NP rendered care for this patient independently, reviewed the findings and plan as documented in the note above. I did not physically speak with or examine the patient on this date. Objective - Vital Signs Vital signs: Vital Signs Temp 98.9 F 01/30/24 03:02 Pulse 59 L 01/30/24 03:02 Resp 16 01/30/24 03:02 BP 131/73 01/30/24 03:02 Pulse Ox 98 01/30/24 03:02 FiO2 Intake & Output 01/29/24 01/30/24 01/30/24 18:59 06:59 18:59 Intake Total 1450 240 Output Total 1375 1200 Balance 75 -960 Weight 82.5 kg Intake: IV 1450 Intake, IV Titration 240 Amount Lactated Ringers 1,000 ml 240 @ 20 mls/hr IV .Q24H YOHANA Rx#:[id number] Output: Drainage 25 Right Neck 25 Urine 1300 1200 Estimated Blood Loss 50 Other: Voiding Method Indwelling Catheter Indwelling Catheter - Labs CBC & Chem 7: 01/30/24 04:06 01/30/24 04:06 Labs: Abnormal Lab Results - Last 24 Hours (Table) 01/30/24 01/30/24 Range/Units 04:06 04:06 WBC 16.22 H (4.50-10.00) X 10*3/uL Hgb 11.5 L (12.0-15.0) g/dL MCH 25.2 L (27.0-32.0) pg MCHC 30.4 L (32.0-37.0) g/dL RDW 15.5 H (11.5-14.5) % Immature Gran # 0.06 H (0.00-0.04) X 10*3/uL Neutrophils # 13.23 H (1.80-7.70) X 10*3/uL Monocytes # 1.15 H (0.20-1.00) X 10*3/uL Eosinophils # 0.01 L (0.04-0.35) X 10*3/uL Glucose 119 H (70-110) mg/dL
== END 2024-01-30 10:51 | disposition home or self-care (01) ==
LOC: OR 05:43 → 4SSUR 10:16 → OR 01-30 10:51
PROVIDERS: ATTEND Orthopaedic Surgery
DX: M47.22 Other spondylosis with radiculopathy, cervical region (principal); M48.02 Spinal stenosis, cervical region; M47.12 Other spondylosis with myelopathy, cervical region; G96.00 Cerebrospinal fluid leak, unspecified; R13.10 Dysphagia, unspecified; E78.5 Hyperlipidemia, unspecified; F17.210 Nicotine dependence, cigarettes, uncomplicated; I10 Essential (primary) hypertension; Z91.030 Bee allergy status; Z79.899 Other long term (current) drug therapy; Z79.02 Long term (current) use of antithrombotics/antiplatelets
CPT/HCPCS: 22551; 97161; 80048; 85025; 72040; 72125; 22552; 22846; 22853; 20936; 20930; L0120; C1713; J2250; J0330; J1100; J2710; J0690; J2405; J3010; J1885; J2704; J1171; J2371; J1596

== ENCOUNTER → 2024-04-01 | Outpatient (CLI) | payer MEDICARE ==
[2024-04-01 16:01] LABS: Basophils # (A) 0.06 X 10*3/uL (0.00-0.10); Basophils % (A) 0.8 %; Eosinophils # (A) 0.43 X 10*3/uL (0.04-0.35); Eosinophils % (A) 5.5 %; HCT 39.5 % (37.2-46.3); HGB 11.7 g/dL (12.0-15.0); Lymphocytes # (A) 2.86 X 10*3/uL (0.90-5.00); Lymphocytes % (A) 36.6 %; MCH 24.7 pg (27.0-32.0); MCHC 29.6 g/dL (32.0-37.0); MCV 83.3 FL (80.0-97.0); Mean Platelet Volume 10.4 FL (9.5-12.2); Monocytes # (A) 0.68 X 10*3/uL (0.20-1.00); Monocytes % (A) 8.7 %; NRBC Per 100 WBC 0 X 10*3/uL (0.00-0.01); Neutrophils # (A) 3.76 X 10*3/uL (1.80-7.70); Neutrophils % (A) 48.1 %; Platelet Count 438 X 10*3/uL (140-440); RBC 4.74 X 10*6/uL (4.10-5.20); RDW 16.5 % (11.5-14.5); WBC 7.81 X 10*3/uL (4.50-10.00)
[2024-04-01 16:06] LABS: ALT 20 U/L (8-44); AST 17 U/L (13-35); Albumin 4.2 g/dL (3.8-4.9); Albumin/Globulin Ratio 1.91 Ratio (1.60-3.17); Alkaline Phosphatase 62 U/L (41-126); BUN/Creat Ratio 24.14 Ratio (12.00-20.00); Blood Urea Nitrogen 16.9 mg/dL (9.0-27.0); Calcium 9.4 mg/dL (8.7-10.3); Carbon Dioxide 27.8 mmol/L (21.6-31.8); Chloride 107 mmol/L (96-109); Chol/HDL Ratio 3.39 Ratio; Globulin 2.2 g/dL (1.6-3.3); Glucose 101 mg/dL (70-110); LDL Cholesterol,Calculated 77.7 mg/dL (0.0-131.0); Magnesium 2.2 mg/dL (1.5-2.4); Potassium 4.8 mmol/L (3.5-5.5); Sodium 144 mmol/L (135-145); Total Bilirubin 0.2 mg/dL (0.3-1.2); Total Protein 6.4 g/dL (6.2-8.2)
== END | disposition home or self-care (01) ==
LOC: LABWHC1 09:02
PROVIDERS: ATTEND Internal Medicine
DX: Z00.00 Encounter for general adult medical examination without abnormal findings (principal); M85.80 Other specified disorders of bone density and structure, unspecified site
CPT/HCPCS: 36415; 80053; 80061; 82306; 83735; 84443; 85025

== ENCOUNTER → 2024-09-02 | Outpatient (CLI) | payer MEDICARE ==
[2024-09-02 08:22] VITALS: BP 153/87; PULSE 67; RESP 17
--- NOTE | 2024-09-04 07:29 | P.PAINPG ---
PQRS Measure Charge Sheet Comment: HISTORY OF PRESENT ILLNESS: A 69 yr old female presents today w severe and chronic neck pain x 1 yr secondary to C3-C6 ACDF for evaluation. Pt states pain level is provoked at 5-6 /10 in intensity, constant, localized in the lower cervical spine, predominantly axial, numbing in character w occasional shooting pain to the RUE. Pain is provoked by over activity. Pain is alleviated by injections, PT integrated w massage x 6 wks which ended in May 2023, physician guided home exercise regimen daily since Apr 2023, use of a TENS unit at home, cervical traction at home, heat, medications, topical, repositioning and rest. Pt has C3-C5 scheduled 01/29/24. Interventional proceudres include C3-C6 ACDF (02/17), PAMELA C6-C7 x1, BL RFA C4- C5/ C5-C6 (Nov/Dec 2023) Medications include Lyrica, Voltaren gel REVIEW OF ORGAN SYSTEMS: CONSTITUTIONAL: No fevers or chills. No recent weight loss. NEUROLOGICAL: + numbness and tingling along the distal extremities. No seizure disorders or headaches. MUSCULOSKELETAL: + pain PSYCHIATRIC: Denies current depression or suicidal thoughts. Physical Examinations : Constitutional : Cooperative , not in acute distress . Neurologic : Cranial nerve II to XII intact. No focal neurological deficits. Psychiatric : alert & oriented x 3. Matching mood & appropriate affect. Judgment & insight intact. Musculoskeletal : Cervical Spine +Incisional scar Motor strength in the deltoid and biceps: Normal right side. Normal Left side Motor strength biceps and the wrist extensors: Normal right side . Normal left side Motor strength in the triceps muscle: Normal right side. Normal left side Deep tendon reflexes: Normal at the biceps. Normal at Brachioradialis. Normal at triceps Vertebral body tenderness to deep palpation C6 Cervical facet loading test: positive bilaterally C4-C5, C5-C6 Spurling test: positive bilaterally Neck distraction test: positive R C6-C7 Sindy sign: positive bilaterally Lumbar spine Motor strength lower extremities ,thigh and legs 5/5 Right side , 5/5 Left side Deep tendon reflexes : Normal Knee Jerk. Normal Ankle Jerk Vertebral body tenderness over Jones Test positive Lumbar facet Loading Test: positive Right / positive Left Range of motion of the lumbar spine Flexion 30 degrees, extension 10 degrees Straight Leg Raise test: Left/ Right positive at degree Lauar test: positive right / positive left. Severe tenderness over the Sacroiliac joint on the Right / Left sides Gaenslen test: positive bilaterally Seated flexion test: positive bilaterally. Sacral spine : Severe tenderness over the Sacroiliac joint: right side / left side Range of motion: Flexion of the lumbar spine <60 degrees Range of motion: Extension of the lumbar spine <20 degrees Gaenslen's Test positive Laura test: positive right side / left side Thigh Thrust Test Sacral Thrust Test Imaging: MRI non contrast of the cervical spine from 05/03/[address] non contrast cervical spine from 01/29/24 reviewed Assessment/ Plan : C3-C6 ACDF Recommendation of R paramedian PAMELA C6-C7 #1. Risks, benefits of procedure discussed and pt verbalized understanding. Protocol for discontinuation/ continuation of medications juaquin procedure discussed. All questions answered. I have spent greater than 30 minutes on patient care today. Dr Juarez was available by phone for the evaluation of this patient. The time was used to review the medical records including relevant urine studies and Prescription history (MAPs), review of the available imaging, evaluation and examination of the patient, coordination of care with the medical staff and if applicable referring physicians, as well as creation of the medical record PQRS Narrative: Narcotic Agreement Date Signed 01/15/24 Hx Alcohol Use (MH) No Home Medications: Ambulatory Orders Atorvastatin [Lipitor] 40 mg PO HS 05/24/23 amLODIPine [Norvasc] 2.5 mg PO HS 05/24/23 Cyanocobalamin (Vitamin B-12) [Vitamin B-12] 1,000 mcg PO DAILY 06/08/23 Diclofenac Sodium 50 mg PO TID 06/08/23 Magnesium 250 mg PO DAILY 06/08/23 Multivitamins, Thera [Multivitamin (formulary)] 1 tab PO DAILY 06/08/23 Pregabalin 150 mg PO BID 06/08/23 S-Adenosylmethionine Sul Tosyl [Abner-E] 400 mg PO QAM 06/08/23 Turmeric Root Extract [Turmeric] 500 mg PO DAILY 06/08/23 Ubidecarenone [Co Q-10] 100 mg PO DAILY 06/08/23 Aspirin [Adult Low Dose Aspirin EC] 81 mg PO DAILY #14 tab 01/30/24 Cyclobenzaprine [Flexeril] 5 mg PO TID PRN #40 tablet 01/30/24 HYDROcodone/APAP 10-325MG [[address] 10-325] 1 tab PO Q4-6H PRN #40 tab 01/30/24 Pregabalin [Lyrica] 150 mg PO BID #60 cap 01/30/24 Sennosides/Docusate Sodium [Senna Plus 8.6-50 mg Softgel] 1 each PO DAILY PRN #20 capsule 01/30/24 cefaDROXiL [Duricef] 500 mg PO Q12HR #10 cap 01/30/24 Controlled Substance Measures - Controlled Substance Measures Is patient prescribed a controlled substance at discharge?: No
== END ==
LOC: PNWHC3 07:35
PROVIDERS: ATTEND Specialist
DX: M43.22 Fusion of spine, cervical region (principal); Z91.030 Bee allergy status; Z91.038 Other insect allergy status
CPT/HCPCS: 99212

== ENCOUNTER → 2024-09-17 | Outpatient (CLI) | payer MEDICARE ==
--- NOTE | 2024-09-17 13:09 | CT ---
EXAMINATION TYPE: CT cervical spine wo con DATE OF EXAM: 09/17/2024 10:11 AM COMPARISON: None. CLINICAL INDICATION: Female, 69 years old with history of M43.22 FUSION OF SPINE M62.81; Fusion of sp ine TECHNIQUE: CT of the cervical spine without IV contrast. Coronal and sagittal reconstructions perform ed. CT DLP: 405.80 mGycm, Automated exposure control for dose reduction was used. FINDINGS: Rightward nasal septal deviation. Moderate to advanced facet arthropathy throughout. Patient status post C3-C6 ACDF. Residual posterior osteophytic ridging at C4 to mild spinal canal zoë nosis. Trace grade 1 anterolisthesis below the fusion at C6-C7. Hyperostotic changes of the facets and uncovertebral joints contribute to: At C3-C4, moderate left greater than right neuroforaminal stenosis. At C4-C5, moderate to severe bilateral neural foraminal stenosis. At C5-C6, moderate to severe bilateral foraminal stenosis. At C6/C7, severe left and moderate right neural foraminal stenosis. At C7-T1, mild bilateral neural foraminal stenosis. At T1-T2, moderate right neuroforaminal stenosis. IMPRESSION: 1. Status post C3-C6 ACDF. Trace grade 1 anterolisthesis below the fusion at C6/C7. 2. Residual posterior osteophytic ridging at C4 contributes to a residual mild spinal canal narrowing . 3. Hyperostotic changes of the facets and uncovertebral joints contribute to variable moderate to sev ere neuroforaminal stenoses as outlined above. [facility], , 09/17/2024 1:06 PM
== END | disposition home or self-care (01) ==
LOC: RADCTMAIN 09:41
PROVIDERS: ATTEND Orthopaedic Surgery
DX: M43.22 Fusion of spine, cervical region (principal); M43.12 Spondylolisthesis, cervical region; M99.71 Connective tissue and disc stenosis of intervertebral foramina of cervical region; M25.78 Osteophyte, vertebrae
CPT/HCPCS: 72125